=== PATIENT | female | born 1935 | race Caucasian/White ===

== ENCOUNTER 2018-08-29 13:55 | Inpatient (IN) | payer MEDICARE, BC ==
[2018-08-29 14:28] LABS: ABSOLUTE EOSINOPHILS # (AUTO) 0.3 10^3/uL (0.0-0.6); ABSOLUTE LYMPHOCYTES (AUTO) 1.9 10^3/uL (0.5-4.7); ABSOLUTE MONOCYTES (AUTO) 0.4 10^3/uL (0.1-1.4); ABSOLUTE NEUT (AUTO) 3.4 10^3/uL (1.7-8.2); BASOPHILS % (AUTO) 0.7 % (0-2); EOSINOPHILS % (AUTO) 4.9 % (0-6); HEMATOCRIT 37.5 % (36.0-47.0); HEMOGLOBIN 12.4 g/dL (12.0-15.5); LYMPHOCYTES % (AUTO) 30.9 % (13-45); MEAN CORPUSCULAR HEMOGLOBIN 30.2 pg (27.0-33.4); MEAN CORPUSCULAR HGB CONC 33.1 g/dL (32.0-36.0); MEAN CORPUSCULAR VOLUME 91 fl (80-97); PLATELET COUNT 126 10^3/uL (150-450); RED BLOOD COUNT 4.12 10^6/uL (3.72-5.28); RED CELL DISTRIBUTION WIDTH 12.2 % (11.5-14.0); SEGMENTED NEUTROPHILS % (AUTO) 56.5 % (42-78); TOTAL CELLS COUNTED % (AUTO) 100 %; WHITE BLOOD COUNT 6.1 10^3/uL (4.0-10.5)
[2018-08-29 14:33] LABS: PARTIAL THROMBOPLASTIN TIME 27.3 SEC (23.5-35.8)
[2018-08-29 14:38] LABS: PROTHROMBIN TIME 13.2 SEC (11.4-15.4)
[2018-08-29 15:00] LABS: ALANINE AMINOTRANSFERASE 27 U/L (9-52); ALBUMIN 3.4 g/dL (3.5-5.0); ALKALINE PHOSPHATASE 96 U/L (38-126); ANION GAP 5 (5-19); ASPARTATE AMINO TRANSFERASE 26 U/L (14-36); BILIRUBIN,DIRECT 0.3 mg/dL (0.0-0.4); BILIRUBIN,TOTAL 0.7 mg/dL (0.2-1.3); BLOOD UREA NITROGEN 21 mg/dL (7-20); CALCIUM 8.6 mg/dL (8.4-10.2); CARBON DIOXIDE 32 mmol/L (22-30); CHLORIDE 101 mmol/L (98-107); CREATINE KINASE 34 U/L (30-135); CREATINE KINASE MB 0.93 ng/mL (<4.55); GLUCOSE 103 mg/dL (75-110); TOTAL PROTEIN 6.4 g/dL (6.3-8.2); TROPONIN I < 0.012 ng/mL
--- NOTE | 2018-08-29 16:23 | RADIOLOGY REPORT (SQ) ---
EXAM DESCRIPTION: CT HEAD WITHOUT COMPLETED DATE/TIME: 08/29/2018 2:08 pm REASON FOR STUDY: new slurred speech, diff swallowing COMPARISON: None. TECHNIQUE: Axial images acquired through the brain without intravenous contrast. Images reviewed wi th bone, brain and subdural windows. Additional sagittal and coronal reconstructions were generated. Images stored on PACS. All CT scanners at this facility use dose modulation, iterative reconstruction, and/or weight based d osing when appropriate to reduce radiation dose to as low as reasonably achievable (ALARA). [facility]: Dose Right [facility]: CareDose [facility]: Dose Right [facility]: Teradose 4D [facility]: [employer] RADIATION DOSE: CT Rad equipment meets quality standard of care and radiation dose reduction techniq ues were employed. CTDIvol: 53.2 mGy. DLP: 1017 mGy-cm. mGy. LIMITATIONS: None. FINDINGS: VENTRICLES: Normal size and contour. CEREBRUM: No masses. No hemorrhage. No midline shift. No evidence for acute infarction. Normal gra y/white matter differentiation. No areas of low density in the white matter. CEREBELLUM: No masses. No hemorrhage. No alteration of density. No evidence for acute infarction. EXTRAAXIAL SPACES: No fluid collections. No masses. ORBITS AND GLOBE: No intra- or extraconal masses. Normal contour of globe without masses. CALVARIUM: No fracture. PARANASAL SINUSES: Right maxillary sinus fluid. SOFT TISSUES: No mass or hematoma. OTHER: No other significant finding. IMPRESSION: Right maxillary sinus fluid suggests acute infection. EVIDENCE OF ACUTE STROKE: NO. COMMENT: Quality ID # 436: Final reports with documentation of one or more dose reduction techniques (e.g., Automated exposure control, adjustment of the mA and/or kV according to patient size, use of iterative reconstruction technique) TECHNICAL DOCUMENTATION: JOB ID: [id number] [employer]- All Rights Reserved Reading location - IP/workstation name: [email or web address]
--- NOTE | 2018-08-29 16:27 | RADIOLOGY REPORT (SQ) ---
EXAM DESCRIPTION: CHEST SINGLE VIEW COMPLETED DATE/TIME: 08/29/2018 2:12 pm REASON FOR STUDY: new slurred speech, diff swallowing COMPARISON: None. NUMBER OF VIEWS: One view. TECHNIQUE: Single frontal radiographic image of the chest acquired. LIMITATIONS: Low lung volumes. FINDINGS: LUNGS AND PLEURA: No consolidation or effusions. No pneumothorax. MEDIASTINUM AND HILAR STRUCTURES: Apparent mediastinal widening most likely due to portable technique . HEART AND VASCULAR STRUCTURES: Mild cardiac enlargement. No failure. SUPPORT DEVICES: None. BONES: No acute findings. OTHER: No other significant finding. IMPRESSION: Mild cardiomegaly. No acute findings in the chest. TECHNICAL DOCUMENTATION: JOB ID: [id number] [employer]- All Rights Reserved Reading location - IP/workstation name: [email or web address]
--- NOTE | 2018-08-29 16:29 | RADIOLOGY REPORT (SQ) ---
EXAM DESCRIPTION: CTA HEAD; CTA NECK COMPLETED DATE/TIME: 08/29/2018 2:53 pm REASON FOR STUDY: look for LVO causing stroke symptoms COMPARISON: CT brain from earlier TECHNIQUE: Axial dynamic scanning technique with dynamic contrast enhancement through the extra-aircraft air conditioning mechanic nial carotid and vertebral arteries and cerebral arteries. Multiplanar reconstruction. 3-D MIPS an d Volume-rendered images acquired at the workstation and saved to PACS. Images are reviewed in brai n, subdural, soft tissue, bone, lung windows. All CT scanners at this facility use dose modulation, iterative reconstruction, and/or weight based d osing when appropriate to reduce radiation dose to as low as reasonably achievable (ALARA). [facility]: Dose Right [facility]: CareDose [facility]: Dose Right [facility]: Teradose 4D [facility]: [employer] CONTRAST TYPE AND DOSE: contrast/concentration: Isovue 350.00 mg/ml; Total Contrast Delivered: 70.0 ml; Total Saline Delivered: 56.0 ml RENAL FUNCTION: GFR > 60. LIMITATIONS: None. FINDINGS: Carotids: Tortuous common carotids without stenosis. Internal and external carotids bilaterally are patent. N o evidence of dissection. Bilateral patent vertebral arteries. [place]: Bilateral anterior cerebral arteries are patent. Posterior cerebral arteries look patent. Patent ri ght middle cerebral artery. The origin of the left MCA looks patent but vessels beyond this and thro ughout the MCA distribution are generally attenuated suggesting significant proximal stenosis/ occlus ion. No enhancing lesions. OTHER: 3-D reconstructions confirm findings. IMPRESSION: 1. Normal CTA bilateral carotids. 2. Attenuated vessels throughout the left cerebral hemisphere, MCA distribution. This suggests signi ficant proximal stenosis/occlusion. COMMENT: Quality ID #[id number]: Measurements of distal internal carotid diameter were used as the denomina tor for stenosis measurement. TECHNICAL DOCUMENTATION: JOB ID: [id number] Quality ID # [id number]: Final reports with documentation of one or more dose reduction techniques (e.g., Au tomated exposure control, adjustment of the mA and/or kV according to patient size, use of iterative reconstruction technique) 2010 [employer]- All Rights Reserved Reading location - IP/workstation name: [email or web address]
--- NOTE | 2018-08-29 16:29 | RADIOLOGY REPORT (SQ) ---
EXAM DESCRIPTION: CTA HEAD; CTA NECK COMPLETED DATE/TIME: 08/29/2018 2:53 pm REASON FOR STUDY: look for LVO causing stroke symptoms COMPARISON: CT brain from earlier TECHNIQUE: Axial dynamic scanning technique with dynamic contrast enhancement through the extra-scraper tender nial carotid and vertebral arteries and cerebral arteries. Multiplanar reconstruction. 3-D MIPS an d Volume-rendered images acquired at the workstation and saved to PACS. Images are reviewed in brai n, subdural, soft tissue, bone, lung windows. All CT scanners at this facility use dose modulation, iterative reconstruction, and/or weight based d osing when appropriate to reduce radiation dose to as low as reasonably achievable (ALARA). [facility]: Dose Right [facility]: CareDose [facility]: Dose Right [facility]: Teradose 4D [facility]: [employer] CONTRAST TYPE AND DOSE: contrast/concentration: Isovue 350.00 mg/ml; Total Contrast Delivered: 70.0 ml; Total Saline Delivered: 56.0 ml RENAL FUNCTION: GFR > 60. LIMITATIONS: None. FINDINGS: Carotids: Tortuous common carotids without stenosis. Internal and external carotids bilaterally are patent. N o evidence of dissection. Bilateral patent vertebral arteries. [place]: Bilateral anterior cerebral arteries are patent. Posterior cerebral arteries look patent. Patent ri ght middle cerebral artery. The origin of the left MCA looks patent but vessels beyond this and thro ughout the MCA distribution are generally attenuated suggesting significant proximal stenosis/ occlus ion. No enhancing lesions. OTHER: 3-D reconstructions confirm findings. IMPRESSION: 1. Normal CTA bilateral carotids. 2. Attenuated vessels throughout the left cerebral hemisphere, MCA distribution. This suggests signi ficant proximal stenosis/occlusion. COMMENT: Quality ID #[id number]: Measurements of distal internal carotid diameter were used as the denomina tor for stenosis measurement. TECHNICAL DOCUMENTATION: JOB ID: [id number] Quality ID # [id number]: Final reports with documentation of one or more dose reduction techniques (e.g., Au tomated exposure control, adjustment of the mA and/or kV according to patient size, use of iterative reconstruction technique) 2010 [employer] All Rights Reserved Reading location - IP/workstation name: [email or web address]
[2018-08-29] MEDS ORDERED: HYDRALAZINE HCL INJ/PF 20 MG/1 ML SDV IV ONE (17:37)
--- NOTE | 2018-08-29 17:48 | ER Document Report ---
Entered by RYAN ART SCRIBE 08/29/18 1718 Acting as scribe for:KATHY PRUITT DO ED General - General Chief Complaint: S/S of Possible Stroke Stated Complaint: DIFFICULTY SWALLOWING Time Seen by Provider: 08/29/18 14:00 Primary Care Provider: RYAN NICE MD [Primary Care Provider] - Follow up as needed Notes: Patient is an 82-year-old female arriving via EMS presenting to the emergency department with a possible stroke. [id number] at bedside states that the patient lives on her own, is independent in her ADLs and that her alarm went off, the loop sewer ended up going to the scene and found her on the floor. Family at bedside states that she has had intermittent episodes for the past month and a half of right-sided weakness, confusion and difficulty speaking. They will last no more than 15 minutes at a time and then recur. They have never lasted this long. Last known normal was yesterday evening of the . Patient has been experiencing difficulty swallowing, as well as weakness in her legs bilaterally. Family at bedside states that the patient has a bag of medications but has , and in the bag she has Coreg 3.125 that she was taking twice a day and is no longer taking. She also has a bag of medications she is currently taking. TRAVEL OUTSIDE OF THE [place] IN LAST 30 DAYS: No - Related Data Allergies/Adverse Reactions: Sulfa (Sulfonamide Antibiotics) Allergy (Intermediate, Verified 07/29/15 13:22) rash Past Medical History - General Information source: Patient, Relative - Social History Smoking Status: Unknown if Ever Smoked Cigarette use (# per day): No Chew tobacco use (# tins/day): No Frequency of alcohol use: None Drug Abuse: None Family History: Reviewed & Not Pertinent Patient has suicidal ideation: No Patient has homicidal ideation: No - Past Medical History Cardiac Medical History: Reports: Hx Hypertension - medicated Denies: Hx Heart Attack Pulmonary Medical History: Reports: Hx COPD GI Medical History: Reports: Hx Hiatal Hernia Musculoskeletal Medical History: Reports Hx Arthritis Past Surgical History: Reports: Hx Appendectomy, Hx Cholecystectomy, Hx Hysterectomy - Immunizations Hx Diphtheria, Pertussis, Tetanus Vaccination: Yes Review of Systems - Review of Systems Constitutional: No symptoms reported EENT: See HPI, Difficulty swallowing Cardiovascular: No symptoms reported Respiratory: No symptoms reported Gastrointestinal: No symptoms reported Genitourinary: No symptoms reported Female Genitourinary: No symptoms reported Musculoskeletal: See HPI Skin: No symptoms reported Hematologic/Lymphatic: No symptoms reported Neurological/Psychological: See HPI -: Yes All other systems reviewed and negative Physical Exam - Vital signs Vitals: Pulse Resp BP Pulse Ox 100 14 160/74 H 100 08/29/18 14:30 08/29/18 14:30 08/29/18 14:30 08/29/18 14:30 Interpretation: Hypertensive - Notes Notes: PHYSICAL EXAM GENERAL: Awake. Responds to greeting, that is all. Stares off to her left. HEAD: Normocephalic, atraumatic. EYES: Pupils equal, round, and reactive to light. Extraocular movements intact. ENT: Slight right-sided facial drooping. Oral mucosa moist, tongue midline. NECK: Full range of motion. Supple. Trachea midline. LUNGS: Clear to auscultation bilaterally, no wheezes, rales, or rhonchi. No respiratory distress. HEART: Regular rate and rhythm. No murmurs, gallops, or rubs. ABDOMEN: Soft, non-tender. Non-distended. Bowel sounds present in all 4 quadrants. No guarding, rigidity, or rebound. EXTREMITIES: Weakness in right arm and leg bilaterally, 4 out of 5 muscle str ength. No edema, radial and dorsalis pedis pulses 2/4 bilaterally. No cyanosis. NEUROLOGICAL: Awake, unable to answer orientation questions, cannot answer person, place or time, some dysarthria, difficulty with word finding. Right- sided facial droop. Unable to cooperate with full NIH.. Biceps and patellar DTRs 2+ bilaterally. PSYCH: Flat affect. SKIN: Warm, dry, normal turgor. Multiple actinic keratosis. Course - Re-evaluation Re-evalutation: 08/29/18 17:45 Patient made a stroke alert and immediately sent for a CT scan of the head though she is out of timeframe as her last known normal was last evening. Patient is not a candidate for TPA due to the fact that her last known normal was last evening. CT scan of the head verbal report was called to me by Dr. Nikos noe who reported that he may see an early evolving right MCA stroke and recommended getting a MRI in order to confirm. I was concerned for the possibility of a large vessel occlusion that was still within the 24-hour window to perform clot retrieval so I ordered a CTA of the head and neck instead. This did not show any large vessel occlusion. Official read of the CTA of the head and neck as well as of the CT scan of the head without contrast were both read by different radiologist who did not see any signs of a stroke. Patient's clinical presentation is still consistent with a stroke. After multiple rechecks the patient is not having any significant improvement, still has difficulty moving her right arm, still has right-sided facial droop, still has some slurred speech, disorientation and difficulty with word finding. Failed swallow screening. CBC unremarkable, coags normal, CMP shows slightly elevated BUN at 21 otherwise unremarkable, troponin negative, chest x-ray shows no acute process. Discussed case with Dr. Bernard the hospitalist who agreed to admit the patient to his service. Patient will likely go to the [facility]. She just recently became significantly hypertensive without any change in mental status, patient will have a 20 mg IV dose of hydralazine given and be rechecked. If this does not improve her blood pressure she will be started on labetalol and sent to the ICU instead. Dr. Bernard will order the MRI to further elucidate the exact area of her clinically apparent stroke. - Vital Signs Vital signs: Temp Pulse Resp BP Pulse Ox 100 14 160/74 H 100 08/29/18 14:30 08/29/18 14:30 08/29/18 14:30 08/29/18 14:30 - Laboratory Result Diagrams: 08/29/18 14:17 08/29/18 14:17 Laboratory results interpreted by me: 08/29/18 08/29/18 14:17 14:17 Plt Count 126 L Carbon Dioxide 32 H BUN 21 H Albumin 3.4 L - EKG Interpretation by Me Additional EKG results interpreted by me: 08/29/18 17:46 EKG shows sinus tachycardia at a rate of 99, normal axis, normal intervals, no ST segment elevations or depressions, 1 PVC, T wave inversions noted in lead aVF and lead III per my interpretation. Critical Care Note - Critical Care Note Total time excluding time spent on procedures (mins): 35 Discharge - Discharge Clinical Impression: Acute CVA (cerebrovascular accident), Hypertension Condition: Fair Disposition: ADMITTED INPATIENT Admitting Provider: Joana (Hospitalist) Unit Admitted: [facility] Referrals: RYAN NICE MD [Primary Care Provider] - Follow up as needed ED [employer]/Exc Criteria - Date/Time patient last known well: Date/Time: 08/28/2018 12:00 p.m. - Date/Time patient arrived in ED: _: 08/28/2018 14:00 - Inclusion Criteria: 1: Patient presented to ED within 3 hours of acute ischemic stroke symptom onset? -: No 2: Did baseline CT exclude intracranial hemorrhage and/or other risk factors? -: Yes 3: Is the age of the patient 18 years of age or greater? -: Yes : If any of the above questions are answered "NO" then stop, patient is not a candidate for Alteplase, : If all of the above questions are answered "YES" then continue with Exclusion Criteria. - Exclusion Criteria: 1: Is there evidence of intracranial hemorrhage on baseline CT? 2: Is there suspicion of subarachnoid hemorrhage (even if CT negative)? 3: Is there a history of serious head trauma, recent previous stroke or AK within 3 months? 4: Does the patient have a clinical presentation consistent with AK or post-AK pericarditis? 5: Is there history of intracranial hemorrhage? 6: On repeated measurement is Systolic BP greater than 185mmHg or Diastolic BP greater that 110 mmHg and is aggressive treatment needed to reduce blood pressure to these limits (e.g. constant infusion of an anti-hypertensive)? 7: Did the patient awake with stroke symptoms? 8: Has the patient had a lumbar puncture or an arterial puncture at a non- compressile site within 7 days? 9: With in the last 14 days did the patient have surgery or major trauma? 10: Is the patient or less than 2 weeks? 11: Was there any active bleeding or acute trauma? 12: Does the patient have intracranial neoplasm, arteriovenous malformation or aneurysm? 13: Does the patient have abnormal glucose (less than 50 or greater than 400mg/dl)? Record glucose in Comment. 14: Patient has rapidly improving symptoms at the time Alteplase is to be Administered. 15: Does the patient have any risks for bleeding, including but not limited to: a.: Current use of Coumadin with PT greater than 15 seconds or INR greater than 1.7. b.: Current use of Pradaxa (Dabigatran). c.: Heparin administereed within the past 48 hours and PTT elevated. d.: Platelet count less than 100,000/mm. e.: Major surgery or serious trauma within 14 days. f.: Gastrointestinal or gynecological urinary bleeding within 14 days. g.: Myocardial Infarction (AK) within 3 months. : If the answer to any of the above questions is "YES" then stop, the patient is not a candidate for Alteplase. : If the answer to all of the above questions is "NO" then the patient may be eligible for the Administration of Alteplase. : If the patient is noted to have seizure activity at onset of Stroke symptoms; Consult Neurologist for further evaluation. - The patient is: -: Included and is eligible to receive Alteplase. *Initiate bed placement at higher level of care* Reviewed risks & benefits of thrombolytic therapy: I have reviewed the risks and benefits of thrombolytic therapy with the patient and/or his/her family. -: Excluded and not eligible to receive Alteplase for the above exclusions. --: Yes -: Excluded and not eligible to receive Alteplase for other reasons (specify in comments): - Diagnosis of TIA: -: Patient presented with transient symptoms that are now resolved and no other neurologic findings are currently present. List symptoms in comments. -: Patient is NOT a candidate for tPA. -: ____(put name in comment) has been consulted for admission and continued evaluation of risk factor assessment. ED NIH Stroke Scale - NIH Stroke Scale When completed:: Protocol *: 1. NIH scale should be completed with appropriate accompanying assessment tools. *: 2. The NIH should reflect what the patient is capable of doing and should not be coached by the clinician. 1a. Level of Consciousness: 0=Alert;keenly responsive -: 1=Drowsy -: 2=Obtunded -: 3=Coma/unresponsive or reflex to noxious stimuli. 1a. Responses: 0 1b. Orientation Questions: a. What month is it? -: b. How old are you? -: 0=Answers both questions correctly. -: 1=Answers one question correctly or patient is intubated or has orotracheal trauma. -: 2=Answers neither question correctly. 1b. Responses: 2 1c. Response to commands: a. Open and close eyes? -: b. Medical Education Manager and release hand? -: Credit is given despite weakness. Demonstration of task is permitted. Subst itute command if hands cannot be used. -: 0=Performs both tasks correctly -: 1=Performs one task correctly -: 2=Performs neither task correctly 1c. Responses: 0 2. Gaze: Establish eye contact and instruct patient to "Follow my finger" -: 0=Normal -: 1=Partial gaze palsy. Gaze is abnormal in one or both eyes, but where forced deviation or total gaze paresis is not present. -: 2=Forced deviation or total gaze paresis. 2. Responses: 0 3. Visual Herrera: Sees fingers in all four quadrants. -: 0=No visual loss. -: 1=Partial hemianopsia. -: 2=Complete hemianopsia. -: 3=Bilateral hemianopsia (including Cortical blindness) 3. Responses: 0 4. Facial Movement: Instruct patient to: -: a. Show me your teeth -: b. Raise your eyebrows -: c. Close your eyes -: d. Smile -: 0=Normal symmetrical movement -: 1=Minor paralysis (flattened nasolabial fold, asymmetry on smiling). -: 2=Partial paralysis (total or near total paralysis of lower face). -: 3=Complete paralysis of upper and lower face 4. Responses: 2 5. Motor functions (left arm): Alternate sides and extend each arm with palms down (90 degrees if sitting or 45 degrees for supine). -: 0=No drift;limb holds for full 10 seconds. -: 1=Drift; limb holds but drifts down before full 10 seconds, but does not hit bed. -: 2=Some effort against gravity; limb cannot get to or maintain position. -: 3=No effort against gravity; limb falls. -: 4=No movement. -: UN=Amputation, joint fusion, explain in comments. 5. Responses (left arm): 0 5. Motor Functions (right arm): Alternate sides and extend each arm with palms down (90 degrees if sitting or 45 degrees for supine). -: 0=No drift;limb holds for full 10 seconds. -: 1=Drift; limb holds but drifts down before full 10 seconds, but does not hit bed. -: 2=Some effort against gravity; limb cannot get to or maintain position. -: 3=No effort against gravity; limb falls. -: 4=No movement. -: UN=Amputation, joint fusion, explain in comments. 5. Responses (right arm): 1 6. Motor Functions (left leg): With patient lying supine, alternate sides and extend each leg (30 degrees always while supine). -: 0=No drift, leg holds position for full 5 seconds -: 1=Drift; leg falls before full 5 seconds but does not hit bed. -: 2=Some effort against gravity, leg falls to bed but some effort against gravity. -: 3=No effort against gravity, leg falls to bed immediately. -: 4=No movement. -: UN=Amputation, joint fusion; explain in comments. 6. Responses (left leg): 0 6. Motor Functions (right leg): With patient lying supine, alternate sides and extend each leg (30 degrees always while supine). -: 0=No drift, leg holds position for full 5 seconds -: 1=Drift; leg falls before full 5 seconds but does not hit bed. -: 2=Some effort against gravity, leg falls to bed but some effort against gravity. -: 3=No effort against gravity, leg falls to bed immediately. -: 4=No movement. -: UN=Amputation, joint fusion; explain in comments. 6. Responses (right leg): 1 7. Limb Ataxia: With eyes open instruct patient to: -: a. "Touch your finger to your nose". -: b. "Touch your heel to your roblero" -: 0=Absent -: 1=Present in one limb. -: 2=Present in two limbs. -: UN=Amputation or joint fusion; explain in comments. 7. Responses: UN - can't follow commands 8. Sensory: Test sensation using pinprick or noxious stimuli. Test as many body parts as possible. -: 0=Normal;no sensory loss -: 1=Mile to moderate sensory loss (patient feels pin prick but is less sharp on affected side). -: 2=Severe or total sensory loss. 8. Responses: 0 9. Best Language: Instruct patient to: -: a. "Describe what you see in this picture." -: b. "Name the items in this picture." -: c. "Read these sentences." -: 0=No aphasia, normal -: 1=Mild to moderate aphasia. -: 2=Severe aphasia -: 3=Mute, global aphasia, no usable speech or auditory comprehension. 9. Responses: 2 10. Articulation, Dysarthia: Instruct patient to: -: "Read these words" or "Repeat these words" -: 0=Normal -: 1=Mild to moderate; patient may slur some words but can be understood without difficulty. -: 2=Severe; patients speech so slurred as to be unintelligible in the absence of dysphasia. -: UN=Intubated or other physical barrier, explain in comments. 10. Responses: 1 11. Extinction or inattention: 0=No abnormality -: 1= Visual, tactile, auditory, spatial, or personal inattention or extinction to bilateral simulation in one or the sensory modalities. -: 2=Profound ben-inattention or ben-inattention to more than one modality; d oes not recognize own hand. 11. Responses: 0 Total Score: 9 I personally performed the services described in the documentation, reviewed and edited the documentation which was dictated to the scribe in my presence, and it accurately records my words and actions.
[2018-08-29] MEDS ORDERED: ASPIRIN 300 MG SUPP, RECTAL PR ONE (17:55)
[2018-08-29] MEDS ORDERED: ACETAMINOPHEN 650 MG SUPP.RECT PR PRN (18:02)
[2018-08-29] MEDS ORDERED: ONDANSETRON HCL INJ/PF 4 MG/2 ML SDV IV PRN (18:02)
[2018-08-29] MEDS ORDERED: HYDRALAZINE HCL INJ/PF 20 MG/1 ML SDV IV PRN (18:15)
--- NOTE | 2018-08-29 18:32 | PDOC H&P ---
History of Present Illness Admission Date/PCP: 08/29/18 18:06 RYAN NICE MD Patient complains of: difficulty in communicating communicating History of Present Illness: CRISTOFER CARR is a 82 year old female history of osteoarthritis, gastric further reflux disease, depression this information got after reviewing her medications and the family members unable to give her past medical history on the patient is unable to communicate. Patient does have any previous admissions. As per the family the alarm went off at the patient's home and the patient is living alone the [facility] department call the patient's son to request to turn off the alarm which she did then he got a call again saying that his mom is unable to talk and she has a problem with ambulation they recommended to call the EMS EMS came and brought her to the emergency room for further evaluation. In the emergency room patient is unable to communicate but not in distress. Work-up shows no stroke in the CT head CT of the neck was negative for any stenosis. At the time of my examination patient is unable to talk at all and she has difficulty in following the commands. Also noticed to have weakness on the right upper arm. Decided to put her in IMCU for further management. Stroke parameters is going to be implemented. Past Medical History Cardiac Medical History: Reports: Hypertension - medicated Denies: Myocardial Infarction Pulmonary Medical History: Reports: Chronic Obstructive Pulmonary Disease (COPD) Denies: Asthma Neurological Medical History: Denies: Seizures GI Medical History: Reports: Hiatal Hernia Denies: Hepatitis Musculoskeltal Medical History: Reports: Arthritis Hematology: Denies: Anemia, Sickle Cell Disease Past Surgical History Past Surgical History: Reports: Appendectomy, Cholecystectomy, Hysterectomy Denies: Amputation, Mastectomy, Pacemaker Social History Smoking Status: Unknown if Ever Smoked Frequency of Alcohol Use: None Drugs: None Hx Prescription Drug Abuse: No - Advance Directive Resuscitation Status: Do Not Resuscitate Surrogate healthcare decision maker:: As per the son Georgi Black he wants her mom to be DNR/DNI. Family History Family History: Reviewed & Not Pertinent Parental Family History Reviewed: Yes - Family history of hypertension. Children Family History Reviewed: Yes Sibling(s) Family History Reviewed.: Yes Medication/Allergy Allergies/Adverse Reactions: Sulfa (Sulfonamide Antibiotics) Allergy (Intermediate, Verified 07/29/15 13:22) rash Review of Systems ROS unobtainable: Due to mental status Physical Exam Vital Signs: Temp Pulse Resp BP Pulse Ox 100 14 160/74 H 100 08/29/18 14:30 08/29/18 14:30 08/29/18 14:30 08/29/18 14:30 Intake & Output 08/28/18 08/29/18 08/30/18 06:59 06:59 06:59 Weight 93.1 kg General appearance: PRESENT: mild distress Head exam: PRESENT: atraumatic Eye exam: PRESENT: PERRLA Mouth exam: PRESENT: moist, tongue midline Teeth exam: PRESENT: edentulous Neck exam: ABSENT: carotid bruit, JVD, lymphadenopathy, thyromegaly Respiratory exam: PRESENT: decreased breath sounds Cardiovascular exam: PRESENT: RRR. ABSENT: diastolic murmur, rubs, systolic murmur GI/Abdominal exam: PRESENT: normal bowel sounds, soft. ABSENT: distended, guarding, mass, organolmegaly, rebound, tenderness Rectal exam: PRESENT: deferred Extremities exam: PRESENT: full ROM. ABSENT: calf tenderness, clubbing, pedal edema Neurological exam: PRESENT: altered, other - Examination right upper arm is weak there is no twister doffer at all but ceased spontaneously lifting her right arm. She is unable to talk at all. Spontaneously moving her lower extremities and left arm. Swallowing evaluation in the emergency room. Psychiatric exam: PRESENT: anxious Results Laboratory Results: 08/29/18 14:17 08/29/18 14:17 08/29/18 08/29/18 14:17 14:17 WBC 6.1 RBC 4.12 Hgb 12.4 Hct 37.5 MCV 91 MCH 30.2 MCHC 33.1 RDW 12.2 Plt Count 126 L Seg Neutrophils % 56.5 Lymphocytes % 30.9 Monocytes % 7.0 Eosinophils % 4.9 Basophils % 0.7 Absolute Neutrophils 3.4 Absolute Lymphocytes 1.9 Absolute Monocytes 0.4 Absolute Eosinophils 0.3 Absolute Basophils 0.0 Sodium 138.0 Potassium 4.0 Chloride 101 Carbon Dioxide 32 H Anion Gap 5 BUN 21 H Creatinine 0.84 Est GFR ( Amer) > 60 Est GFR (Non-Af Amer) > 60 Glucose 103 Calcium 8.6 Total Bilirubin 0.7 AST 26 ALT 27 Alkaline Phosphatase 96 Total Protein 6.4 Albumin 3.4 L 08/29/18 08/29/18 14:17 14:17 Creatine Kinase 34 CK-MB (CK-2) 0.93 Troponin I < 0.012 Impressions: Chest X-Ray 08/29/18 14:00 IMPRESSION: Mild cardiomegaly. No acute findings in the chest. Head CT 08/29/18 14:00 IMPRESSION: Right maxillary sinus fluid suggests acute infection. EVIDENCE OF ACUTE STROKE: NO. Head CTA 08/29/18 14:14 IMPRESSION: 1. Normal CTA bilateral carotids. 2. Attenuated vessels throughout the left cerebral hemisphere, MCA distribution. This suggests significant proximal stenosis/occlusion. Neck CTA 08/29/18 14:14 IMPRESSION: 1. Normal CTA bilateral carotids. 2. Attenuated vessels throughout the left cerebral hemisphere, MCA distribution. This suggests significant proximal stenosis/occlusion. Assessment and Plan - Diagnosis (1) Acute CVA (cerebrovascular accident) Is this a current diagnosis for this admission?: Yes Plan: 08/29/2018 based on the physical examination looks like patient has a TIA/stroke. Patient is going to be admitted to [facility] as inpatient. CODE STATUS is DNR/DNI. Stroke core measures are implemented patient is going to be n.p.o. until evaluated by speech therapist tomorrow. MRI of the brain was requested. She is going to be on GI prophylaxis with Protonix 40 mg IV twice daily and Lovenox 95 mg subcu every 12 hours. Started on aspirin atorvastatin and Plavix but at this time patient is going to be n.p.o. Lipid panel was requested for tomorrow mo rning. Patient's blood pressures are elevated in the emergency room latest blood pressure is 170/80 started on IV hydralazine 10 mg every 6 hours PRN for systolic blood pressure more than 160. Aspiration fall seizure precautions are requested Cabrera's catheter was requested. The of the neck was negative for a stenosis. T OT consult was requested nursing home social worker consult was requested for placement. (2) Hypertension Qualifiers: Hypertension type: essential hypertension Qualified Code(s): I10 - Essential (primary) hypertension Is this a current diagnosis for this admission?: Yes Plan: 08/29/2018-patient admitted with uncontrolled hypertension to start on IV hydralazine 10 mg every 6 hours as needed. No history of hypertension reported by the family members. (3) Obesity (BMI 30-39.9) Is this a current diagnosis for this admission?: No Plan: 08/29/2018-patient BMI is more than 30 once is stable we will go to recommend diet exercise weight loss lifestyle modifications. Dietary consult will be requested. - Time Time Spent with patient: 25-34 minutes Medications reviewed and adjusted accordingly: Yes Anticipated discharge: SNF
[2018-08-29] MEDS: ASPIRIN 325 MG TABLET PO SCH (18:37)
[2018-08-29 18:40] LABS: APPEARANCE,URINE SLIGHTLY-CLOUDY; BILIRUBIN,URINE NEGATIVE (NEGATIVE); COLOR,URINE YELLOW; GLUCOSE, URINE NEGATIVE (NEGATIVE); KETONES,URINE NEGATIVE (NEGATIVE); LEUKOCYTE ESTERASE,URINE TRACE (NEGATIVE); NITRITE,URINE POSITIVE (NEGATIVE); PROTEIN,URINE NEGATIVE (NEGATIVE); URINE SPECIFIC GRAVITY 1.019; UROBILINOGEN,URINE NEGATIVE mg/dL (<2.0)
[2018-08-29] MEDS ORDERED: ENOXAPARIN SODIUM INJ 40 MG/0.4 ML DISP.SYRIN SUBCUT SCH (19:00)
--- NOTE | 2018-08-29 23:17 | EKG REPORT ---
SEVERITY:- BORDERLINE ECG - SINUS TACHYCARDIA VENTRICULAR PREMATURE COMPLEX BORDERLINE T ABNORMALITIES, INFERIOR LEADS : Confirmed by: Naya Flood 29-Aug-2018 23:16:51
--- NOTE | 2018-08-29 23:47 | RADIOLOGY REPORT (SQ) ---
CLINICAL HISTORY: stroke COMPARISON: None. TECHNIQUE: MR BRAIN WITHOUT IV CONTRAST on 08/29/2018 12:00 AM CDT FINDINGS: There is a moderate area of restricted diffusion in the left parietal lobe predominantly with some involvement of the left temporal lobe, anterior basal ganglia on the left as well as the frontal lobe. There is no acute hemorrhage. There is diffuse cerebral atrophy. Paranasal sinuses are clear with the exception of the right maxillary sinus. Bilateral lens replacements were performed. Mastoid air cells are clear. IMPRESSION: Large area of acute infarction posterior left MCA territory.
[2018-08-29] MEDS: ENOXAPARIN SODIUM INJ 100 MG/1 ML DISP.SYRIN SUBCUT SCH (23:59)
[2018-08-30] MEDS: SIMVASTATIN 10 MG TABLET PO SCH ×2 (00:17→22:20)
[2018-08-30] MEDS: PANTOPRAZOLE SODIUM 40 MG VIAL IV SCH ×3 (00:18→22:21)
[2018-08-30 06:57] LABS: ABSOLUTE EOSINOPHILS # (AUTO) 0.2 10^3/uL (0.0-0.6); ABSOLUTE LYMPHOCYTES (AUTO) 2.2 10^3/uL (0.5-4.7); ABSOLUTE MONOCYTES (AUTO) 0.6 10^3/uL (0.1-1.4); ABSOLUTE NEUT (AUTO) 5.2 10^3/uL (1.7-8.2); BASOPHILS % (AUTO) 0.4 % (0-2); HEMOGLOBIN 12.5 g/dL (12.0-15.5); LYMPHOCYTES % (AUTO) 27.3 % (13-45); MEAN CORPUSCULAR HEMOGLOBIN 29.9 pg (27.0-33.4); MEAN CORPUSCULAR VOLUME 91 fl (80-97); MONOCYTES % (AUTO) 6.8 % (3-13); PLATELET COUNT 141 10^3/uL (150-450); RED CELL DISTRIBUTION WIDTH 12.4 % (11.5-14.0); SEGMENTED NEUTROPHILS % (AUTO) 63.5 % (42-78); TOTAL CELLS COUNTED % (AUTO) 100 %; WHITE BLOOD COUNT 8.1 10^3/uL (4.0-10.5)
[2018-08-30 07:16] LABS: ALANINE AMINOTRANSFERASE 20 U/L (9-52); ALBUMIN 3.6 g/dL (3.5-5.0); ALKALINE PHOSPHATASE 97 U/L (38-126); ANION GAP 6 (5-19); ASPARTATE AMINO TRANSFERASE 27 U/L (14-36); BILIRUBIN,DIRECT 0.4 mg/dL (0.0-0.4); BLOOD UREA NITROGEN 18 mg/dL (7-20); CALCIUM 9.3 mg/dL (8.4-10.2); CARBON DIOXIDE 35 mmol/L (22-30); CHLORIDE 98 mmol/L (98-107); CHOLESTEROL 199.47 mg/dL (0-200); CREATINE KINASE 91 U/L (30-135); GLUCOSE 113 mg/dL (75-110); POTASSIUM 4.4 mmol/L (3.6-5.0); TOTAL PROTEIN 6.7 g/dL (6.3-8.2); TRIGLYCERIDES 79 mg/dL (<150)
[2018-08-30 07:27] LABS: DIRECT LDL 126 mg/dL (<100)
[2018-08-30] MEDS ORDERED: LORAZEPAM INJ 2 MG/1 ML VIAL IV PRN (08:07)
--- NOTE | 2018-08-30 08:15 | PDOC PROGRESS REPORT ---
Subjective Progress Note for:: 08/30/18 Subjective:: 82 year old female history of osteoarthritis, gastric further reflux disease, depression this information got after reviewing her medications and the family members unable to give her past medical history on the patient is unable to communicate. Patient does have any previous admissions. As per the family the alarm went off at the patient's home and the patient is living alone the [facility]'s department call the patient's son to request to turn off the alarm which she did then he got a call again saying that his mom is unable to talk and she has a problem with ambulation they recommended to call the EMS EMS came and brought her to the emergency room for further evaluation. In the emergency room patient is unable to communicate but not in distress. Work-up shows no stroke in the CT head CT of the neck was negative for any stenosis. At the time of my examination patient is unable to talk at all and she has difficulty in following the commands. Also noticed to have weakness on the right upper arm. Decided to put her in IMCU for further management. Stroke parameters is going to be implemented. 08/30/2018 82-year-old female came to the emergency room with complaints of difficulty in speech and right-sided weakness MRI of the brain shows acute inf arct in the left MCA territory. CT of the neck was negative for carotid artery stenosis. Patient unable to speak but responding by nodding her head and shaking her head. Not in distress. No acute events in the last 24 hours. Discussed the plan of care with the family members they agreed with rehab placement. Reason For Visit: STROKE Physical Exam Vital Signs: Temp Pulse Resp BP Pulse Ox 98.4 F 114 H 24 H 165/74 H 90 L 08/30/18 07:12 08/30/18 07:12 08/30/18 07:12 08/30/18 07:12 08/30/18 07:12 Intake & Output 08/29/18 08/30/18 08/31/18 06:59 06:59 06:59 Weight 88.5 kg General appearance: PRESENT: no acute distress, obese Head exam: PRESENT: atraumatic Eye exam: PRESENT: PERRLA Mouth exam: PRESENT: moist, tongue midline Teeth exam: PRESENT: edentulous Neck exam: ABSENT: carotid bruit, JVD, lymphadenopathy, thyromegaly Respiratory exam: PRESENT: decreased breath sounds Cardiovascular exam: PRESENT: RRR. ABSENT: diastolic murmur, rubs, systolic murmur GI/Abdominal exam: PRESENT: normal bowel sounds, soft. ABSENT: distended, guar ding, mass, organolmegaly, rebound, tenderness Rectal exam: PRESENT: deferred Extremities exam: PRESENT: full ROM. ABSENT: calf tenderness, clubbing, pedal edema Neurological exam: PRESENT: alert, awake, other - MRI shows a left-sided stroke with weakness of the right upper arm on the right lower leg. And she has difficulty in speaking that is dysarthria. Psychiatric exam: PRESENT: anxious Results Laboratory Results: 08/30/18 06:35 08/30/18 06:35 08/29/18 08/29/18 08/29/18 14:17 14:17 17:45 WBC 6.1 RBC 4.12 Hgb 12.4 Hct 37.5 MCV 91 MCH 30.2 MCHC 33.1 RDW 12.2 Plt Count 126 L Seg Neutrophils % 56.5 Lymphocytes % 30.9 Monocytes % 7.0 Eosinophils % 4.9 Basophils % 0.7 Absolute Neutrophils 3.4 Absolute Lymphocytes 1.9 Absolute Monocytes 0.4 Absolute Eosinophils 0.3 Absolute Basophils 0.0 Sodium 138.0 Potassium 4.0 Chloride 101 Carbon Dioxide 32 H Anion Gap 5 BUN 21 H Creatinine 0.84 Est GFR ( Amer) > 60 Est GFR (Non-Af Amer) > 60 Glucose 103 Calcium 8.6 Total Bilirubin 0.7 AST 26 ALT 27 Alkaline Phosphatase 96 Total Protein 6.4 Albumin 3.4 L Triglycerides Cholesterol LDL Cholesterol Direct VLDL Cholesterol HDL Cholesterol TSH Urine Color YELLOW Urine Appearance SLIGHTLY-CLOUDY Urine pH 7.0 Ur Specific Bradley 1.019 Urine Protein NEGATIVE Urine Glucose (UA) NEGATIVE Urine Ketones NEGATIVE Urine Blood SMALL H Urine Nitrite POSITIVE H Ur Leukocyte Esterase TRACE H Urine WBC (Auto) 0 Urine RBC (Auto) 0 08/30/18 08/30/18 08/30/18 06:35 06:35 06:35 WBC 8.1 RBC 4.20 Hgb 12.5 Hct 38.0 MCV 91 MCH 29.9 MCHC 33.0 RDW 12.4 Plt Count 141 L Seg Neutrophils % 63.5 Lymphocytes % 27.3 Monocytes % 6.8 Eosinophils % 2.0 Basophils % 0.4 Absolute Neutrophils 5.2 Absolute Lymphocytes 2.2 Absolute Monocytes 0.6 Absolute Eosinophils 0.2 Absolute Basophils 0.0 Sodium 138.7 Potassium 4.4 Chloride 98 Carbon Dioxide 35 H Anion Gap 6 BUN 18 Creatinine 0.88 Est GFR ( Amer) > 60 Est GFR (Non-Af Amer) > 60 Glucose 113 H Calcium 9.3 Total Bilirubin 1.0 AST 27 ALT 20 Alkaline Phosphatase 97 Total Protein 6.7 Albumin 3.6 Triglycerides 79 Cholesterol 199.47 LDL Cholesterol Direct 126 H VLDL Cholesterol 16.0 HDL Cholesterol 51 TSH 2.45 Urine Color Urine Appearance Urine pH Ur Specific Bradley Urine Protein Urine Glucose (UA) Urine Ketones Urine Blood Urine Nitrite Ur Leukocyte Esterase Urine WBC (Auto) Urine RBC (Auto) 08/29/18 08/29/18 08/29/18 14:17 14:17 19:10 Creatine Kinase 34 37 CK-MB (CK-2) 0.93 Troponin I < 0.012 08/29/18 08/30/18 08/30/18 19:10 01:14 01:14 Creatine Kinase 54 CK-MB (CK-2) Troponin I < 0.012 0.339 08/30/18 08/30/18 06:35 06:35 Creatine Kinase 91 CK-MB (CK-2) Troponin I 0.460 Impressions: Head MRI 08/29/18 00:00 IMPRESSION: Large area of acute infarction posterior left MCA territory. Chest X-Ray 08/29/18 14:00 IMPRESSION: Mild cardiomegaly. No acute findings in the chest. Head CT 08/29/18 14:00 IMPRESSION: Right maxillary sinus fluid suggests acute infection. EVIDENCE OF ACUTE STROKE: NO. Head CTA 08/29/18 14:14 IMPRESSION: 1. Normal CTA bilateral carotids. 2. Attenuated vessels throughout the left cerebral hemisphere, MCA distribution. This suggests significant proximal stenosis/occlusion. Neck CTA 08/29/18 14:14 IMPRESSION: 1. Normal CTA bilateral carotids. 2. Attenuated vessels throughout the left cerebral hemisphere, MCA distribution. This suggests significant proximal stenosis/occlusion. Assessment and Plan - Diagnosis (1) Acute CVA (cerebrovascular accident) Is this a current diagnosis for this admission?: Yes Plan: 08/29/2018 based on the physical examination looks like patient has a TIA/stroke. Patient is going to be admitted to [facility] as inpatient. CODE STATUS is DNR/DNI. Stroke core measures are implemented patient is going to be n.p.o. until evaluated by speech therapist tomorrow. MRI of the brain was requested. She is going to be on GI prophylaxis with Protonix 40 mg IV twice daily and Lovenox 95 mg subcu every 12 hours. Started on aspirin atorvastatin and Plavix but at this time patient is going to be n.p.o. Lipid panel was requested for tomorrow jean-claude chan. Patient's blood pressures are elevated in the emergency room latest blood pressure is 170/80 started on IV hydralazine 10 mg every 6 hours PRN for systolic blood pressure more than 160. Aspiration fall seizure precautions are requested Cabrera's catheter was requested. The of the neck was negative for a stenosis. T OT consult was requested older adult social work specialist consult was requested for placement. 08/30/2018-MRI of the brain shows acute infarct involving the left MCA territory associated with dysarthria and right arm weakness and right lower leg weakness. No problems with bowel movements or urination. Speech consult was requested because patient failed swallowing evaluation yesterday. PT OT consult was requested older adult social work specialist consult was requested for placement. Presently on Lovenox treatment dose subcu every 12 hours. Started on aspirin, simvastatin and Plavix but patient is unable to take any medications by mouth at this time. Aspiration fall seizure precautions are in place. (2) Hypertension Qualifiers: Hypertension type: essential hypertension Qualified Code(s): I10 - Essential (primary) hypertension Is this a current diagnosis for this admission?: Yes Plan: 08/29/2018-patient admitted with uncontrolled hypertension to start on IV hydralazine 10 mg every 6 hours as needed. No history of hypertension reported by the family members. 08/30/2018-patient latest blood pressure is 165/84 with heart rate of 114 presently on IV hydralazine 10 mg IV every 6 as needed for blood pressure more than systolic blood pressure more than 160. (3) Obesity (BMI 30-39.9) Is this a current diagnosis for this admission?: No (4) Elevated troponin Is this a current diagnosis for this admission?: Yes Plan: 08/30/2018-patient came in with normal troponins the third troponin is 0.33 and fourth troponin is 0.46. Echocardiogram and cardiology consult will be requested. - Time Time Spent with patient: 25-34 minutes Medications reviewed and adjusted accordingly: Yes Anticipated discharge: SNF
[2018-08-30 10:00] LABS: CREATINE KINASE MB 2.51 ng/mL (<4.55); TROPONIN I 0.386 ng/mL
[2018-08-30] MEDS ORDERED: ENOXAPARIN SODIUM INJ 40 MG/0.4 ML DISP.SYRIN SUBCUT SCH (10:00)
[2018-08-30] MEDS: ENOXAPARIN SODIUM INJ 100 MG/1 ML DISP.SYRIN SUBCUT SCH ×2 (11:00→22:22)
[2018-08-30] MEDS: ASPIRIN 325 MG TABLET PO SCH (13:17)
[2018-08-30] MEDS: CLOPIDOGREL BISULFATE 75 MG TABLET PO SCH (13:18)
[2018-08-30 16:26] LABS: CREATINE KINASE MB 3.71 ng/mL (<4.55); TROPONIN I 0.263 ng/mL
[2018-08-30 21:21] LABS: CREATINE KINASE MB 4.5 ng/mL (<4.55)
[2018-08-30 21:37] LABS: TROPONIN I 0.476 ng/mL
--- NOTE | 2018-08-30 21:46 | PDOC CONSULTATION ---
Consultation-Blank Consultation: ECHO: There is normal left ventricular wall thickness. LV EF is > than 70% The left ventricular ejection fraction is within normal limits. Doppler measurements suggest pseudonormalized left ventricular relaxation, which is associated with grade II/IV or mild The left ventricle is normal in size. to moderate diastolic dysfunction The left ventricular wall motion is normal. No obvious thrombus, but not a good study for this.Probably no ASD ,VSD , or PFO seen. The right ventricle is normal in size and function. The right atrium is normal. The left atrial size is normal. There is no evidence of mitral valve prolapse. There is no vegetation seen on the mitral valve. There is no mitral valve stenosis. There is a trace to mild amount of mitral regurgitation The aortic valve is not well visualized secondary to technical limitations There is no aortic valve stenosis There is no LVOT obstruction. No aortic regurgitation is present. There is no tricuspid stenosis. There is a trace amount of tricuspid regurgitation There is mild pulmonary hypertension by echo RVSP is 35 to 40 mm of Hg , with RA mean of 5 to 10. There is no pulmonic valvular stenosis. There is no pulmonic valvular regurgitation. The aortic root is normal size. The inferior vena cava appeared normal and decreased > 50% with respiration (RAP 5-10 mmHg) There is no pericardial effusion.
--- NOTE | 2018-08-30 22:01 | XCELERA REPORT ---
[address] [address] Transthoracic Echocardiogram Report Name: CRISTOFER CARR Age: 82 yrs Gender: Female : 1935 Patient Status: Inpatient Patient Location: [address] [place], [place] [id number] Study Date: 08/30/2018 10:22 AM Height: 64 in Weight: 195 lb BSA: 1.9 m2 Procedure: A two-dimensional transthoracic echocardiogram with color flow and Doppler was performed. The study was technically difficult with many images being suboptimal in quality. The study was technically limited with all images being suboptimal in quality. Reason For Study: elevated troponon / CVA History: elevated troponon / CVA. Ordering Physician: TED JHAVERI Performed By: Imani Apple Interpretation Summary There is no obvious cardiac source of embolus noted on this transthoracic echocardiogram. Follow-up with a [facility] is suggested if cardiac source is still suspected. The left ventricle is normal in size. There is normal left ventricular wall thickness. LV EF is > than 70% The left ventricular ejection fraction is within normal limits. Doppler measurements suggest pseudonormalized left ventricular relaxation, which is associated with grade II/IV or mild to moderate diastolic dysfunction The left ventricular wall motion is normal. No obvious thrombus, but not a good study for this.Probably no ASD ,VSD , or PFO seen. The right ventricle is normal in size and function. The right atrium is normal. The left atrial size is normal. There is no evidence of mitral valve prolapse. There is no vegetation seen on the mitral valve. There is no mitral valve stenosis. There is a trace to mild amount of mitral regurgitation The aortic valve is not well visualized secondary to technical limitations There is no aortic valve stenosis There is no LVOT obstruction. No aortic regurgitation is present. There is no tricuspid stenosis. There is a trace amount of tricuspid regurgitation There is mild pulmonary hypertension by echo RVSP is 35 to 40 mm of Hg , with RA mean of 5 to 10. There is no pulmonic valvular stenosis. There is no pulmonic valvular regurgitation. The aortic root is normal size. The inferior vena cava appeared normal and decreased > 50% with respiration (RAP 5-10 mmHg) There is no pericardial effusion. There is no obvious cardiac source of embolus noted on this transthoracic echocardiogram. Follow-up with a [facility] is suggested if cardiac source is still suspected MMode/2D Measurements & Calculations RVDd: 2.5 cm LVIDd: 4.7 cm FS: 45.2 % LA dimension: 3.1 cm IVSd: 0.99 cm LVIDs: 2.6 cm EDV(Teich): 101.0 ml LVPWd: 0.93 cm ESV(Teich): 23.7 ml EF(Teich): 76.5 % Doppler Measurements & Calculations MV E max kayy: MV P1/2t max kayy: Ao V2 max: LV V1 max P.7 cm/sec 138.2 cm/sec 194.3 cm/sec 7.2 mmHg MV P1/2t: 45.2 msec Ao max PG: LV V1 max: MVA(P1/2t): 4.9 cm2 15.1 mmHg 133.8 cm/sec MV dec slope: 895.9 cm/sec2 MV dec time: 0.15 sec PA V2 max: TR max kayy: MV P1/2t-pr_phl: 148.1 cm/sec 271.5 cm/sec 45.2 msec PA max P.8 mmHgTR max P.5 mmHg Left Ventricle The left ventricle is normal in size. There is normal left ventricular wall thickness. LV EF is > than 70%. The left ventricular ejection fraction is within normal limits. Doppler measurements suggest pseudonormalized left ventricular relaxation, which is associated with grade II/IV or mild to moderate diastolic dysfunction. The left ventricular wall motion is normal. No obvious thrombus, but not a good study for this.Probably no ASD ,VSD , or PFO seen. Right Ventricle The right ventricle is normal in size and function. Atria The right atrium is normal. The left atrial size is normal. Mitral Valve There is no evidence of mitral valve prolapse. There is no vegetation seen on the mitral valve. There is no mitral valve stenosis. There is a trace to mild amount of mitral regurgitation. Aortic Valve The aortic valve is not well visualized secondary to technical limitations. There is no aortic valve stenosis. There is no LVOT obstruction. No aortic regurgitation is present. Tricuspid Valve There is no tricuspid stenosis. There is a trace amount of tricuspid regurgitation. There is mild pulmonary hypertension by echo. RVSP is 35 to 40 mm of Hg , with RA mean of 5 to 10. Pulmonic Valve There is no pulmonic valvular stenosis. There is no pulmonic valvular regurgitation. Great Vessels The aortic root is normal size. The inferior vena cava appeared normal and decreased > 50% with respiration (RAP 5-10 mmHg). Effusions There is no pericardial effusion. : TED JHAVERI > Cherelle Roldan
[2018-08-31 08:00] LABS: ABSOLUTE EOSINOPHILS # (AUTO) 0.1 10^3/uL (0.0-0.6); ABSOLUTE LYMPHOCYTES (AUTO) 2.3 10^3/uL (0.5-4.7); ABSOLUTE MONOCYTES (AUTO) 0.8 10^3/uL (0.1-1.4); ABSOLUTE NEUT (AUTO) 4.6 10^3/uL (1.7-8.2); BASOPHILS % (AUTO) 0.3 % (0-2); EOSINOPHILS % (AUTO) 1.3 % (0-6); HEMATOCRIT 35.1 % (36.0-47.0); HEMOGLOBIN 11.7 g/dL (12.0-15.5); LYMPHOCYTES % (AUTO) 29.7 % (13-45); MEAN CORPUSCULAR HEMOGLOBIN 30.2 pg (27.0-33.4); MEAN CORPUSCULAR HGB CONC 33.4 g/dL (32.0-36.0); MEAN CORPUSCULAR VOLUME 90 fl (80-97); MONOCYTES % (AUTO) 10.2 % (3-13); PLATELET COUNT 136 10^3/uL (150-450); RED BLOOD COUNT 3.89 10^6/uL (3.72-5.28); RED CELL DISTRIBUTION WIDTH 12.4 % (11.5-14.0); SEGMENTED NEUTROPHILS % (AUTO) 58.5 % (42-78); TOTAL CELLS COUNTED % (AUTO) 100 %; WHITE BLOOD COUNT 7.8 10^3/uL (4.0-10.5)
[2018-08-31 08:17] LABS: ALANINE AMINOTRANSFERASE 20 U/L (9-52); ALBUMIN 3.3 g/dL (3.5-5.0); ALKALINE PHOSPHATASE 89 U/L (38-126); ANION GAP 7 (5-19); ASPARTATE AMINO TRANSFERASE 36 U/L (14-36); BILIRUBIN,DIRECT 0.2 mg/dL (0.0-0.4); BILIRUBIN,TOTAL 1.3 mg/dL (0.2-1.3); BLOOD UREA NITROGEN 18 mg/dL (7-20); CALCIUM 8.9 mg/dL (8.4-10.2); CARBON DIOXIDE 33 mmol/L (22-30); CHLORIDE 97 mmol/L (98-107); GLUCOSE 122 mg/dL (75-110); POTASSIUM 4.2 mmol/L (3.6-5.0); TOTAL PROTEIN 6.5 g/dL (6.3-8.2)
--- NOTE | 2018-08-31 08:54 | PDOC PROGRESS REPORT ---
Subjective Progress Note for:: 08/31/18 Subjective:: 82 year old female history of osteoarthritis, gastric further reflux disease, depression this information got after reviewing her medications and the family members unable to give her past medical history on the patient is unable to communicate. Patient does have any previous admissions. As per the family the alarm went off at the patient's home and the patient is living alone the [facility]'s department call the patient's son to request to turn off the alarm which she did then he got a call again saying that his mom is unable to talk and she has a problem with ambulation they recommended to call the EMS EMS came and brought her to the emergency room for further evaluation. In the emergency room patient is unable to communicate but not in distress. Work-up shows no stroke in the CT head CT of the neck was negative for any stenosis. At the time of my examination patient is unable to talk at all and she has difficulty in following the commands. Also noticed to have weakness on the right upper arm. Decided to put her in IMCU for further management. Stroke parameters is going to be implemented. 08/30/2018 82-year-old female came to the emergency room with complaints of difficulty in speech and right-sided weakness MRI of the brain shows acute inf arct in the left MCA territory. CT of the neck was negative for carotid artery stenosis. Patient unable to speak but responding by nodding her head and shaking her head. Not in distress. No acute events in the last 24 hours. Discussed the plan of care with the family members they agreed with rehab placement. 08/31/2018 82-year-old female admitted with stroke with right-sided weakness and dysarthria found to have a stroke in the left MCA territory presently on pured diet. PT consult OT consult rehab consult was requested. No acute event the last 24 hours. Comfortable in the bed unable to communicate well. Reason For Visit: STROKE Physical Exam Vital Signs: Temp Pulse Resp BP Pulse Ox 99.4 F 117 H 20 140/56 H 94 08/31/18 07:18 08/31/18 07:18 08/31/18 07:18 08/31/18 07:18 08/31/18 07:18 Intake & Output 08/30/18 08/31/18 09/01/18 06:59 06:59 06:59 Intake Total 290 Balance 290 Weight 88.5 kg 90.6 kg General appearance: PRESENT: no acute distress, morbidly obese Head exam: PRESENT: atraumatic Eye exam: PRESENT: PERRLA Mouth exam: PRESENT: moist, tongue midline Teeth exam: PRESENT: poor dentation Neck exam: PRESENT: carotid bruit Respiratory exam: PRESENT: decreased breath sounds Cardiovascular exam: PRESENT: RRR. ABSENT: diastolic murmur, rubs, systolic murmur GI/Abdominal exam: PRESENT: normal bowel sounds, soft. ABSENT: distended, guarding, mass, organolmegaly, rebound, tenderness Rectal exam: PRESENT: deferred Gentrourinary exam: PRESENT: indwelling catheter Neurological exam: PRESENT: alert, other - Dysarthria associated with right upper arm and right lower leg weakness. Psychiatric exam: PRESENT: appropriate affect, normal mood. ABSENT: homicidal ideation, suicidal ideation Results Laboratory Results: 08/31/18 07:35 08/31/18 07:35 08/31/18 08/31/18 07:35 07:35 WBC 7.8 RBC 3.89 Hgb 11.7 L Hct 35.1 L MCV 90 MCH 30.2 MCHC 33.4 RDW 12.4 Plt Count 136 L Seg Neutrophils % 58.5 Lymphocytes % 29.7 Monocytes % 10.2 Eosinophils % 1.3 Basophils % 0.3 Absolute Neutrophils 4.6 Absolute Lymphocytes 2.3 Absolute Monocytes 0.8 Absolute Eosinophils 0.1 Absolute Basophils 0.0 Sodium 137.1 Potassium 4.2 Chloride 97 L Carbon Dioxide 33 H Anion Gap 7 BUN 18 Creatinine 0.91 Est GFR ( Amer) > 60 Est GFR (Non-Af Amer) 59 L Glucose 122 H Calcium 8.9 Magnesium 1.8 Total Bilirubin 1.3 AST 36 ALT 20 Alkaline Phosphatase 89 Total Protein 6.5 Albumin 3.3 L 08/29/18 08/29/18 08/29/18 14:17 14:17 19:10 Creatine Kinase 34 37 CK-MB (CK-2) 0.93 Troponin I < 0.012 08/29/18 08/30/18 08/30/18 19:10 01:14 01:14 Creatine Kinase 54 CK-MB (CK-2) Troponin I < 0.012 0.339 08/30/18 08/30/18 08/30/18 06:35 06:35 08:40 Creatine Kinase 91 117 CK-MB (CK-2) Troponin I 0.460 08/30/18 08/30/18 08/30/18 08:40 14:27 14:27 Creatine Kinase 160 H CK-MB (CK-2) 2.51 3.71 Troponin I 0.386 0.263 08/30/18 08/30/18 20:38 20:38 Creatine Kinase 205 H CK-MB (CK-2) 4.50 Troponin I 0.476 Impressions: Head MRI 08/29/18 00:00 IMPRESSION: Large area of acute infarction posterior left MCA territory. Chest X-Ray 08/29/18 14:00 IMPRESSION: Mild cardiomegaly. No acute findings in the chest. Head CT 08/29/18 14:00 IMPRESSION: Right maxillary sinus fluid suggests acute infection. EVIDENCE OF ACUTE STROKE: NO. Head CTA 08/29/18 14:14 IMPRESSION: 1. Normal CTA bilateral carotids. 2. Attenuated vessels throughout the left cerebral hemisphere, MCA distribution. This suggests significant proximal stenosis/occlusion. Neck CTA 08/29/18 14:14 IMPRESSION: 1. Normal CTA bilateral carotids. 2. Attenuated vessels throughout the left cerebral hemisphere, MCA distribution. This suggests significant proximal stenosis/occlusion. Assessment and Plan - Diagnosis (1) Acute CVA (cerebrovascular accident) Is this a current diagnosis for this admission?: Yes Plan: 08/29/2018 based on the physical examination looks like patient has a TIA/stroke. Patient is going to be admitted to [facility] as inpatient. CODE STATUS is DNR/DNI. Stroke core measures are implemented patient is going to be n.p.o. until evaluated by speech therapist tomorrow. MRI of the brain was requested. She is going to be on GI prophylaxis with Protonix 40 mg IV twice daily and Lovenox 95 mg subcu every 12 hours. Started on aspirin atorvastatin and Plavix but at this time patient is going to be n.p.o. Lipid panel was requested for tomorrow morning. Patient's blood pressures are elevated in the emergency room latest blood pressure is 170/80 started on IV hydralazine 10 mg every 6 hours PRN for systolic blood pressure more than 160. Aspiration fall seizure precautions are requested Cabrera's catheter was requested. The of the neck was negative for a stenosis. T OT consult was requested social media marketing specialist consult was requested for placement. 08/30/2018-MRI of the brain shows acute infarct involving the left MCA territory associated with dysarthria and right arm weakness and right lower leg weakness. No problems with bowel movements or urination. Speech consult was requested because patient failed swallowing evaluation yesterday. PT OT consult was reque rin social media marketing specialist consult was requested for placement. Presently on Lovenox treatment dose subcu every 12 hours. Started on aspirin, simvastatin and Plavix but patient is unable to take any medications by mouth at this time. Aspiration fall seizure precautions are in place. 08/31/2018-patient admitted with right-sided weakness MRI was positive for stroke patient is on pured diet bedbound OT PT rehab consult was requested stroke core measures are implemented nurse is able to get the medications in crushed form. Echocardiogram is normal (2) Hypertension Qualifiers: Hypertension type: essential hypertension Qualified Code(s): I10 - Essential (primary) hypertension Is this a current diagnosis for this admission?: Yes Plan: 08/29/2018-patient admitted with uncontrolled hypertension to start on IV hydralazine 10 mg every 6 hours as needed. No history of hypertension reported by the family members. 08/30/2018-patient latest blood pressure is 165/84 with heart rate of 114 presently on IV hydralazine 10 mg IV every 6 as needed for blood pressure more than systolic blood pressure more than 160. 08/31/2018-patient blood pressure today is 152/68. Pulse rate is 118. Presently on IV hydralazine 10 mg IV every 6 as needed. To start her on metoprolol 50 mg p.o. twice daily. (3) Obesity (BMI 30-39.9) Is this a current diagnosis for this admission?: No (4) Elevated troponin Is this a current diagnosis for this admission?: Yes Plan: 08/30/2018-patient came in with normal troponins the third troponin is 0.33 and fourth troponin is 0.46. Echocardiogram and cardiology consult will be requested. 08/31/2018-patient came in with normal troponins follow-up troponin shows trended up most likely secondary to neurogenic myocardial ischemia. Patient unable to comunicate, no signs of any distress. - Time Time Spent with patient: 25-34 minutes Medications reviewed and adjusted accordingly: Yes Anticipated discharge: SNF
[2018-08-31] MEDS: ENOXAPARIN SODIUM INJ 100 MG/1 ML DISP.SYRIN SUBCUT SCH ×2 (10:48→21:45)
[2018-08-31] MEDS: ASPIRIN 325 MG TABLET PO SCH (10:48)
[2018-08-31] MEDS: METOPROLOL TARTRATE 50 MG TABLET PO SCH ×2 (10:48→22:00)
[2018-08-31] MEDS: FAMOTIDINE 20 MG TABLET PO SCH ×2 (10:49→22:00)
[2018-08-31] MEDS: CLOPIDOGREL BISULFATE 75 MG TABLET PO SCH (10:49)
[2018-08-31] MEDS ORDERED: ONDANSETRON HCL INJ/PF 4 MG/2 ML SDV IV PRN (15:00)
[2018-08-31 17:24] LABS: APPEARANCE,URINE CLOUDY; BILIRUBIN,URINE NEGATIVE (NEGATIVE); COLOR,URINE AMBER; GLUCOSE, URINE NEGATIVE (NEGATIVE); KETONES,URINE NEGATIVE (NEGATIVE); LEUKOCYTE ESTERASE,URINE LARGE (NEGATIVE); NITRITE,URINE NEGATIVE (NEGATIVE); PROTEIN,URINE 30 mg/dL (NEGATIVE)
[2018-08-31] MEDS: SIMVASTATIN 10 MG TABLET PO SCH (22:00)
[2018-09-01 05:35] LABS: HEMATOCRIT 35.7 % (36.0-47.0); MEAN CORPUSCULAR HEMOGLOBIN 30.3 pg (27.0-33.4); MEAN CORPUSCULAR HGB CONC 33.5 g/dL (32.0-36.0); MEAN CORPUSCULAR VOLUME 90 fl (80-97); PLATELET COUNT 162 10^3/uL (150-450); RED BLOOD COUNT 3.95 10^6/uL (3.72-5.28); RED CELL DISTRIBUTION WIDTH 12.4 % (11.5-14.0); WHITE BLOOD COUNT 9.3 10^3/uL (4.0-10.5)
[2018-09-01 05:56] LABS: ALANINE AMINOTRANSFERASE 19 U/L (9-52); ALBUMIN 3.3 g/dL (3.5-5.0); ALKALINE PHOSPHATASE 85 U/L (38-126); ANION GAP 6 (5-19); ASPARTATE AMINO TRANSFERASE 32 U/L (14-36); BILIRUBIN,DIRECT 0.3 mg/dL (0.0-0.4); BILIRUBIN,TOTAL 1.3 mg/dL (0.2-1.3); BLOOD UREA NITROGEN 20 mg/dL (7-20); CARBON DIOXIDE 30 mmol/L (22-30); CHLORIDE 99 mmol/L (98-107); GLUCOSE 118 mg/dL (75-110); TOTAL PROTEIN 6.4 g/dL (6.3-8.2)
--- NOTE | 2018-09-01 08:17 | PDOC PROGRESS REPORT ---
Subjective Progress Note for:: 09/01/18 Subjective:: 82 year old female history of osteoarthritis, gastric further reflux disease, depression this information got after reviewing her medications and the family members unable to give her past medical history on the patient is unable to communicate. Patient does have any previous admissions. As per the family the alarm went off at the patient's home and the patient is living alone the [facility]'s department call the patient's son to request to turn off the alarm which she did then he got a call again saying that his mom is unable to talk and she has a problem with ambulation they recommended to call the EMS EMS came and brought her to the emergency room for further evaluation. In the emergency room patient is unable to communicate but not in distress. Work-up shows no stroke in the CT head CT of the neck was negative for any stenosis. At the time of my examination patient is unable to talk at all and she has difficulty in following the commands. Also noticed to have weakness on the right upper arm. Decided to put her in IMCU for further management. Stroke parameters is going to be implemented. 08/30/2018 82-year-old female came to the emergency room with complaints of difficulty in speech and right-sided weakness MRI of the brain shows acute inf arct in the left MCA territory. CT of the neck was negative for carotid artery stenosis. Patient unable to speak but responding by nodding her head and shaking her head. Not in distress. No acute events in the last 24 hours. Discussed the plan of care with the family members they agreed with rehab placement. 08/31/2018 82-year-old female admitted with stroke with right-sided weakness and dysarthria found to have a stroke in the left MCA territory presently on pured diet. PT consult OT consult rehab consult was requested. No acute event the last 24 hours. Comfortable in the bed unable to communicate well. 09/[id number]-oxzk-old female admitted with a stroke MRI confirmed that she had a left MCA territory stroke affecting the right side of the body and a speech. She is getting pured diet and medications in crushed form. Family requesting for placement in the [facility]. health service worker is working on the case. Probably she will go to the retirement either Tuesday or Tuesday. No acute events in the last 24 hours. Afebrile. Reason For Visit: STROKE Physical Exam Vital Signs: Temp Pulse Resp BP Pulse Ox 99.7 F 100 22 H 157/63 H 100 08/31/18 23:22 09/01/18 04:00 09/01/18 04:00 09/01/18 04:00 09/01/18 04:00 Intake & Output 08/31/18 09/01/18 09/02/18 06:59 06:59 06:59 Intake Total 290 460 Output Total 250 Balance 290 210 Weight 90.6 kg 89.3 kg General appearance: PRESENT: no acute distress, cooperative, obese Head exam: PRESENT: atraumatic Eye exam: PRESENT: PERRLA Ear exam: PRESENT: normal external ear exam Mouth exam: PRESENT: moist, tongue midline Teeth exam: PRESENT: edentulous Neck exam: ABSENT: carotid bruit, JVD, lymphadenopathy, thyromegaly Respiratory exam: PRESENT: decreased breath sounds Cardiovascular exam: PRESENT: RRR. ABSENT: diastolic murmur, rubs, systolic murmur GI/Abdominal exam: PRESENT: normal bowel sounds, soft. ABSENT: distended, guarding, mass, organolmegaly, rebound, tenderness Rectal exam: PRESENT: deferred Gentrourinary exam: PRESENT: indwelling catheter Extremities exam: PRESENT: other - Weakness of the right upper arm right lower leg. Neurological exam: PRESENT: alert, awake, other - Stroke affecting the right side of the body and also affecting the speech. Results Laboratory Results: 09/01/18 04:58 09/01/18 04:58 08/31/18 08/31/18 09/01/18 07:35 17:00 04:58 WBC 9.3 RBC 3.95 Hgb 12.0 Hct 35.7 L MCV 90 MCH 30.3 MCHC 33.5 RDW 12.4 Plt Count 162 Sodium 137.1 Potassium 4.2 Chloride 97 L Carbon Dioxide 33 H Anion Gap 7 BUN 18 Creatinine 0.91 Est GFR ( Amer) > 60 Est GFR (Non-Af Amer) 59 L Glucose 122 H Calcium 8.9 Magnesium 1.8 Total Bilirubin 1.3 AST 36 ALT 20 Alkaline Phosphatase 89 Total Protein 6.5 Albumin 3.3 L Urine Color VITA Urine Appearance CLOUDY Urine pH 8.0 Ur Specific [place] 1.020 Urine Protein 30 H Urine Glucose (UA) NEGATIVE Urine Ketones NEGATIVE Urine Blood NEGATIVE Urine Nitrite NEGATIVE Ur Leukocyte Esterase LARGE H Urine WBC (Auto) 108 Urine RBC (Auto) 6 09/01/18 04:58 WBC RBC Hgb Hct MCV MCH MCHC RDW Plt Count Sodium 135.1 L Potassium 4.0 Chloride 99 Carbon Dioxide 30 Anion Gap 6 BUN 20 Creatinine 0.90 Est GFR ( Amer) > 60 Est GFR (Non-Af Amer) > 60 Glucose 118 H Calcium 9.0 Magnesium 1.8 Total Bilirubin 1.3 AST 32 ALT 19 Alkaline Phosphatase 85 Total Protein 6.4 Albumin 3.3 L Urine Color Urine Appearance Urine pH Ur Specific [place] Urine Protein Urine Glucose (UA) Urine Ketones Urine Blood Urine Nitrite Ur Leukocyte Esterase Urine WBC (Auto) Urine RBC (Auto) 08/29/18 08/29/18 08/29/18 14:17 14:17 19:10 Creatine Kinase 34 37 CK-MB (CK-2) 0.93 Troponin I < 0.012 08/29/18 08/30/18 08/30/18 19:10 01:14 01:14 Creatine Kinase 54 CK-MB (CK-2) Troponin I < 0.012 0.339 08/30/18 08/30/18 08/30/18 06:35 06:35 08:40 Creatine Kinase 91 117 CK-MB (CK-2) Troponin I 0.460 08/30/18 08/30/18 08/30/18 08:40 14:27 14:27 Creatine Kinase 160 H CK-MB (CK-2) 2.51 3.71 Troponin I 0.386 0.263 08/30/18 08/30/18 20:38 20:38 Creatine Kinase 205 H CK-MB (CK-2) 4.50 Troponin I 0.476 Impressions: Head MRI 08/29/18 00:00 IMPRESSION: Large area of acute infarction posterior left MCA territory. Chest X-Ray 08/29/18 14:00 IMPRESSION: Mild cardiomegaly. No acute findings in the chest. Head CT 08/29/18 14:00 IMPRESSION: Right maxillary sinus fluid suggests acute infection. EVIDENCE OF ACUTE STROKE: NO. Head CTA 08/29/18 14:14 IMPRESSION: 1. Normal CTA bilateral carotids. 2. Attenuated vessels throughout the left cerebral hemisphere, MCA distribution. This suggests significant proximal stenosis/occlusion. Neck CTA 08/29/18 14:14 IMPRESSION: 1. Normal CTA bilateral carotids. 2. Attenuated vessels throughout the left cerebral hemisphere, MCA distribution. This suggests significant proximal stenosis/occlusion. Assessment and Plan - Diagnosis (1) Acute CVA (cerebrovascular accident) Is this a current diagnosis for this admission?: Yes Plan: 08/29/2018 based on the physical examination looks like patient has a TIA/stroke. Patient is going to be admitted to [facility] as inpatient. CODE STATUS is DNR/DNI. Stroke core measures are implemented patient is going to be n.p.o. until evaluated by speech therapist tomorrow. MRI of the brain was requested. She is going to be on GI prophylaxis with Protonix 40 mg IV twice daily and Lovenox 95 mg subcu every 12 hours. Started on aspirin atorvastatin and Plavix but at this time patient is going to be n.p.o. Lipid panel was requested for tomorrow morning. Patient's blood pressures are elevated in the emergency room latest blood pressure is 170/80 started on IV hydralazine 10 mg every 6 hours PRN for systolic blood pressure more than 160. Aspiration fall seizure precautions are requested Cabrera's catheter was requested. The of the neck was negative for a stenosis. T OT consult was requested social director consult was requested for placement. 08/30/2018-MRI of the brain shows acute infarct involving the left MCA territory associated with dysarthria and right arm weakness and right lower leg weakness. No problems with bowel movements or urination. Speech consult was requested because patient failed swallowing evaluation yesterday. PT OT consult was requested social director consult was requested for placement. Presently on Lovenox treatment dose subcu every 12 hours. Started on aspirin, simvastatin and Plavix but patient is unable to take any medications by mouth at this time. Aspiration fall seizure precautions are in place. 08/31/2018-patient admitted with right-sided weakness MRI was positive for stroke patient is on pured diet bedbound OT PT rehab consult was requested stroke core measures are implemented nurse is able to get the medications in crushed form. Echocardiogram is normal 09/01/2018-patient admitted with a CVA involving the right MCA territory affecting the right upper arm right lower leg and also the speech and swallowing. PT OT on board social director working on the case for her to go to long-term care facility in [facility]. No acute events. Stroke core measures implemented during the hospital stay. (2) Hypertension Qualifiers: Hypertension type: essential hypertension Qualified Code(s): I10 - Essential (primary) hypertension Is this a current diagnosis for this admission?: Yes Plan: 08/29/2018-patient admitted with uncontrolled hypertension to start on IV hydralazine 10 mg every 6 hours as needed. No history of hypertension reported by the family members. 08/30/2018-patient latest blood pressure is 165/84 with heart rate of 114 presently on IV hydralazine 10 mg IV every 6 as needed for blood pressure more than systolic blood pressure more than 160. 08/31/2018-patient blood pressure today is 152/68. Pulse rate is 118. Presently on IV hydralazine 10 mg IV every 6 as needed. To start her on metoprolol 50 mg p.o. twice daily. 09/01/2018-patient came in with hypertensive emergency with systolic blood pressure of 211/diastolic blood pressure of 145 and repeat blood pressure was 213/167 followed by 189/78 these are the recordings in the emergency room after starting IV hydralazine 10 mg every 4 PRN for systolic blood pressure more than 160 blood pressure is improved today's blood pressure is 157/63. Presently on metoprolol 50 mg p.o. every 12 hours started on lisinopril 10 mg daily from today. Hypertensive emergency resolving. (3) Obesity (BMI 30-39.9) Is this a current diagnosis for this admission?: No (4) Elevated troponin Is this a current diagnosis for this admission?: Yes - Time Time Spent with patient: 25-34 minutes Medications reviewed and adjusted accordingly: Yes Anticipated discharge: SNF
[2018-09-01] MEDS: ASPIRIN 325 MG TABLET PO SCH (09:52)
[2018-09-01] MEDS: METOPROLOL TARTRATE 50 MG TABLET PO SCH ×2 (09:53→21:18)
[2018-09-01] MEDS: ENOXAPARIN SODIUM INJ 100 MG/1 ML DISP.SYRIN SUBCUT SCH ×2 (09:54→21:17)
[2018-09-01] MEDS: CLOPIDOGREL BISULFATE 75 MG TABLET PO SCH (09:55)
[2018-09-01] MEDS: FAMOTIDINE 20 MG TABLET PO SCH ×2 (09:56→21:18)
[2018-09-01] MEDS: LISINOPRIL 10 MG TABLET PO SCH (09:56)
[2018-09-01] MEDS: SIMVASTATIN 10 MG TABLET PO SCH (21:18)
--- NOTE | 2018-09-02 08:32 | PDOC PROGRESS REPORT ---
Subjective Progress Note for:: 09/02/18 Subjective:: 82 year old female history of osteoarthritis, gastric further reflux disease, depression this information got after reviewing her medications and the family members unable to give her past medical history on the patient is unable to communicate. Patient does have any previous admissions. As per the family the alarm went off at the patient's home and the patient is living alone the [facility]'s department call the patient's son to request to turn off the alarm which she did then he got a call again saying that his mom is unable to talk and she has a problem with ambulation they recommended to call the EMS EMS came and brought her to the emergency room for further evaluation. In the emergency room patient is unable to communicate but not in distress. Work-up shows no stroke in the CT head CT of the neck was negative for any stenosis. At the time of my examination patient is unable to talk at all and she has difficulty in following the commands. Also noticed to have weakness on the right upper arm. Decided to put her in IMCU for further management. Stroke parameters is going to be implemented. 08/30/2018 82-year-old female came to the emergency room with complaints of difficulty in speech and right-sided weakness MRI of the brain shows acute inf arct in the left MCA territory. CT of the neck was negative for carotid artery stenosis. Patient unable to speak but responding by nodding her head and shaking her head. Not in distress. No acute events in the last 24 hours. Discussed the plan of care with the family members they agreed with rehab placement. 08/31/2018 82-year-old female admitted with stroke with right-sided weakness and dysarthria found to have a stroke in the left MCA territory presently on pured diet. PT consult OT consult rehab consult was requested. No acute event the last 24 hours. Comfortable in the bed unable to communicate well. 09/[id number]-axhv-old female admitted with a stroke MRI confirmed that she had a left MCA territory stroke affecting the right side of the body and a speech. She is getting pured diet and medications in crushed form. Family requesting for placement in the [facility]. bridge gang worker is working on the case. Probably she will go to the senior care either Tuesday or Tuesday. No acute events in the last 24 hours. Afebrile. 09/02/[id number]-rvsg-old female admitted with stroke confirmed by MRI. Patient has little bit of difficulty in taking pudding. No acute change in the last 24 hours. Afebrile. Waiting for placement. Reason For Visit: STROKE Physical Exam Vital Signs: Temp Pulse Resp BP Pulse Ox 98.4 F 85 26 H 148/78 H 100 09/02/18 07:13 09/02/18 07:13 09/02/18 07:13 09/02/18 07:13 09/02/18 07:13 Intake & Output 09/01/18 09/02/18 09/03/18 06:59 06:59 06:59 Intake Total 460 473 Output Total 250 Balance 210 473 Weight 89.3 kg 89.6 kg General appearance: PRESENT: no acute distress, obese Head exam: PRESENT: atraumatic Eye exam: PRESENT: PERRLA Mouth exam: PRESENT: moist, tongue midline Teeth exam: PRESENT: poor dentation Neck exam: PRESENT: carotid bruit Respiratory exam: PRESENT: decreased breath sounds Cardiovascular exam: PRESENT: RRR. ABSENT: diastolic murmur, rubs, systolic murmur GI/Abdominal exam: PRESENT: normal bowel sounds, soft. ABSENT: distended, guarding, mass, organolmegaly, rebound, tenderness Rectal exam: PRESENT: deferred Extremities exam: PRESENT: full ROM. ABSENT: calf tenderness, clubbing, pedal edema Neurological exam: PRESENT: alert, awake, oriented to person, oriented to place, oriented to time, oriented to situation, CN II-XII grossly intact. ABSENT: motor sensory deficit Psychiatric exam: PRESENT: appropriate affect, normal mood. ABSENT: homicidal ideation, suicidal ideation Results Laboratory Results: 09/01/18 04:58 09/01/18 04:58 08/29/18 08/29/18 08/29/18 14:17 14:17 19:10 Creatine Kinase 34 37 CK-MB (CK-2) 0.93 Troponin I < 0.012 08/29/18 08/30/18 08/30/18 19:10 01:14 01:14 Creatine Kinase 54 CK-MB (CK-2) Troponin I < 0.012 0.339 08/30/18 08/30/18 08/30/18 06:35 06:35 08:40 Creatine Kinase 91 117 CK-MB (CK-2) Troponin I 0.460 08/30/18 08/30/18 08/30/18 08:40 14:27 14:27 Creatine Kinase 160 H CK-MB (CK-2) 2.51 3.71 Troponin I 0.386 0.263 08/30/18 08/30/18 20:38 20:38 Creatine Kinase 205 H CK-MB (CK-2) 4.50 Troponin I 0.476 Impressions: Head MRI 08/29/18 00:00 IMPRESSION: Large area of acute infarction posterior left MCA territory. Chest X-Ray 08/29/18 14:00 IMPRESSION: Mild cardiomegaly. No acute findings in the chest. Head CT 08/29/18 14:00 IMPRESSION: Right maxillary sinus fluid suggests acute infection. EVIDENCE OF ACUTE STROKE: NO. Head CTA 08/29/18 14:14 IMPRESSION: 1. Normal CTA bilateral carotids. 2. Attenuated vessels throughout the left cerebral hemisphere, MCA distribution. This suggests significant proximal stenosis/occlusion. Neck CTA 08/29/18 14:14 IMPRESSION: 1. Normal CTA bilateral carotids. 2. Attenuated vessels throughout the left cerebral hemisphere, MCA distribution. This suggests significant proximal stenosis/occlusion. Assessment and Plan - Diagnosis (1) Acute CVA (cerebrovascular accident) Is this a current diagnosis for this admission?: Yes Plan: 08/29/2018 based on the physical examination looks like patient has a TIA/stroke. Patient is going to be admitted to [facility] as inpatient. CODE STATUS is DNR/DNI. Stroke core measures are implemented patient is going to be n.p.o. until evaluated by speech therapist tomorrow. MRI of the brain was requested. She is going to be on GI prophylaxis with Protonix 40 mg IV twice daily and Lovenox 95 mg subcu every 12 hours. Started on aspirin atorvastatin and Plavix but at this time patient is going to be n.p.o. Lipid panel was requested for tomorrow morning. Patient's blood pressures are elevated in the emergency room latest blood pressure is 170/80 started on IV hydralazine 10 mg every 6 hours PRN for systolic blood pressure more than 160. Aspiration fall seizure precautions are requested Cabrera's catheter was requested. The of the neck was negative for a stenosis. T OT consult was requested social security specialist consult was requested for placement. 08/30/2018-MRI of the brain shows acute infarct involving the left MCA territory associated with dysarthria and right arm weakness and right lower leg weakness. No problems with bowel movements or urination. Speech consult was requested because patient failed swallowing evaluation yesterday. PT OT consult was requested social security specialist consult was requested for placement. Presently on Lovenox treatment dose subcu every 12 hours. Started on aspirin, simvastatin a nd Plavix but patient is unable to take any medications by mouth at this time. Aspiration fall seizure precautions are in place. 08/31/2018-patient admitted with right-sided weakness MRI was positive for stroke patient is on pured diet bedbound OT PT rehab consult was requested stroke core measures are implemented nurse is able to get the medications in crushed form. Echocardiogram is normal 09/01/2018-patient admitted with a CVA involving the right MCA territory affecting the right upper arm right lower leg and also the speech and swallowing. PT OT on board social security specialist working on the case for her to go to long-term care facility in [facility]. No acute events. Stroke core measu res implemented during the hospital stay. 09/02/1849-36-urkh-old female admitted for CVA with right-sided ben-parous is. Waiting for placement. Patient has also difficulty in swallowing she is on pur e diet. No acute events the last 24 hours. Waiting for placement. stroke Core measures are implemented. We are going to discontinue meds from today. (2) Hypertension Qualifiers: Hypertension type: essential hypertension Qualified Code(s): I10 - Essential (primary) hypertension Is this a current diagnosis for this admission?: Yes Plan: 08/29/2018-patient admitted with uncontrolled hypertension to start on IV hydralazine 10 mg every 6 hours as needed. No history of hypertension reported by the family members. 08/30/2018-patient latest blood pressure is 165/84 with heart rate of 114 presently on IV hydralazine 10 mg IV every 6 as needed for blood pressure more t andres systolic blood pressure more than 160. 08/31/2018-patient blood pressure today is 152/68. Pulse rate is 118. Presently on IV hydralazine 10 mg IV every 6 as needed. To start her on metoprolol 50 mg p.o. twice daily. 09/01/2018-patient came in with hypertensive emergency with systolic blood pressure of 211/diastolic blood pressure of 145 and repeat blood pressure was 213/167 followed by 189/78 these are the recordings in the emergency room after starting IV hydralazine 10 mg every 4 PRN for systolic blood pressure more than 160 blood pressure is improved today's blood pressure is 157/63. Presently on metoprolol 50 mg p.o. every 12 hours started on lisinopril 10 mg daily from today. Hypertensive emergency resolving. 09/02/2018-patient admitted with hypertensive emergency which was resolved blood pressure today is 121/66 plan is to continue the present management. (3) Obesity (BMI 30-39.9) Is this a current diagnosis for this admission?: No (4) Elevated troponin Is this a current diagnosis for this admission?: Yes - Time Time Spent with patient: 25-34 minutes Medications reviewed and adjusted accordingly: Yes Anticipated discharge: SNF
[2018-09-02] MEDS: ASPIRIN 325 MG TABLET PO SCH (09:47)
[2018-09-02] MEDS: METOPROLOL TARTRATE 50 MG TABLET PO SCH ×2 (09:47→22:13)
[2018-09-02] MEDS: ENOXAPARIN SODIUM INJ 100 MG/1 ML DISP.SYRIN SUBCUT SCH ×2 (09:47→22:12)
[2018-09-02] MEDS: LISINOPRIL 10 MG TABLET PO SCH (09:47)
[2018-09-02] MEDS: FAMOTIDINE 20 MG TABLET PO SCH ×2 (09:47→22:13)
[2018-09-02] MEDS: CLOPIDOGREL BISULFATE 75 MG TABLET PO SCH (09:47)
[2018-09-02] MEDS: SIMVASTATIN 10 MG TABLET PO SCH (22:13)
--- NOTE | 2018-09-03 08:36 | PDOC PROGRESS REPORT ---
Subjective Progress Note for:: 09/03/18 Subjective:: 82 year old female history of osteoarthritis, gastric further reflux disease, depression this information got after reviewing her medications and the family members unable to give her past medical history on the patient is unable to communicate. Patient does have any previous admissions. As per the family the alarm went off at the patient's home and the patient is living alone the [facility] department call the patient's son to request to turn off the alarm which she did then he got a call again saying that his mom is unable to talk and she has a problem with ambulation they recommended to call the EMS EMS came and brought her to the emergency room for further evaluation. In the emergency room patient is unable to communicate but not in distress. Work-up shows no stroke in the CT head CT of the neck was negative for any stenosis. At the time of my examination patient is unable to talk at all and she has difficulty in following the commands. Also noticed to have weakness on the right upper arm. Decided to put her in IMCU for further management. Stroke parameters is going to be implemented. 08/30/2018 82-year-old female came to the emergency room with complaints of difficulty in speech and right-sided weakness MRI of the brain shows acute inf arct in the left MCA territory. CT of the neck was negative for carotid artery stenosis. Patient unable to speak but responding by nodding her head and shaking her head. Not in distress. No acute events in the last 24 hours. Discussed the plan of care with the family members they agreed with rehab placement. 08/31/2018 82-year-old female admitted with stroke with right-sided weakness and dysarthria found to have a stroke in the left MCA territory presently on pured diet. PT consult OT consult rehab consult was requested. No acute event the last 24 hours. Comfortable in the bed unable to communicate well. 09/01/[id number]-uvbm-old female admitted with a stroke MRI confirmed that she had a left MCA territory stroke affecting the right side of the body and a speech. She is getting pured diet and medications in crushed form. Family requesting for placement in the [facility]. pick and shovel worker is working on the case. Probably she will go to the jail either Tuesday or Tuesday. No acute events in the last 24 hours. Afebrile. 09/02/[id number]-tqap-old female admitted with stroke confirmed by MRI. Patient has little bit of difficulty in taking pudding. No acute change in the last 24 hours. Afebrile. Waiting for placement. 09/03/[id number]-tgbn-old female admitted with a stroke confirmed with MRI she does not have any pulmonary tolerate the right arm , barely able to move her right foot. Patient looks like has a hemiplegia with right-sided hemiplegia. Physical therapy is working with the patient ,turnaround planner is working for placement in [facility]. Reason For Visit: STROKE Physical Exam Vital Signs: Temp Pulse Resp BP Pulse Ox 99.0 F 83 28 H 139/51 H 100 09/03/18 07:12 09/03/18 07:12 09/03/18 07:12 09/03/18 07:12 09/03/18 07:12 Intake & Output 09/02/18 09/03/18 09/04/18 06:59 06:59 06:59 Intake Total 473 674 Output Total 50 Balance 473 624 Weight 89.6 kg 88.1 kg General appearance: PRESENT: no acute distress Head exam: PRESENT: atraumatic Eye exam: PRESENT: PERRLA Mouth exam: PRESENT: moist, tongue midline Teeth exam: PRESENT: poor dentation Neck exam: ABSENT: carotid bruit, JVD, lymphadenopathy, thyromegaly Respiratory exam: PRESENT: decreased breath sounds Cardiovascular exam: PRESENT: RRR. ABSENT: diastolic murmur, rubs, systolic murmur GI/Abdominal exam: PRESENT: normal bowel sounds, soft. ABSENT: distended, guarding, mass, organolmegaly, rebound, tenderness Rectal exam: PRESENT: deferred Extremities exam: PRESENT: full ROM. ABSENT: calf tenderness, clubbing, pedal edema Neurological exam: PRESENT: other - pt has a right hemiplegia Psychiatric exam: PRESENT: anxious Results Laboratory Results: 09/01/18 04:58 09/01/18 04:58 08/29/18 08/29/18 08/29/18 14:17 14:17 19:10 Creatine Kinase 34 37 CK-MB (CK-2) 0.93 Troponin I < 0.012 08/29/18 08/30/18 08/30/18 19:10 01:14 01:14 Creatine Kinase 54 CK-MB (CK-2) Troponin I < 0.012 0.339 08/30/18 08/30/18 08/30/18 06:35 06:35 08:40 Creatine Kinase 91 117 CK-MB (CK-2) Troponin I 0.460 08/30/18 08/30/18 08/30/18 08:40 14:27 14:27 Creatine Kinase 160 H CK-MB (CK-2) 2.51 3.71 Troponin I 0.386 0.263 08/30/18 08/30/18 20:38 20:38 Creatine Kinase 205 H CK-MB (CK-2) 4.50 Troponin I 0.476 Impressions: Head MRI 08/29/18 00:00 IMPRESSION: Large area of acute infarction posterior left MCA territory. Chest X-Ray 08/29/18 14:00 IMPRESSION: Mild cardiomegaly. No acute findings in the chest. Head CT 08/29/18 14:00 IMPRESSION: Right maxillary sinus fluid suggests acute infection. EVIDENCE OF ACUTE STROKE: NO. Head CTA 08/29/18 14:14 IMPRESSION: 1. Normal CTA bilateral carotids. 2. Attenuated vessels throughout the left cerebral hemisphere, MCA distribution. This suggests significant proximal stenosis/occlusion. Neck CTA 08/29/18 14:14 IMPRESSION: 1. Normal CTA bilateral carotids. 2. Attenuated vessels throughout the left cerebral hemisphere, MCA distribution. This suggests significant proximal stenosis/occlusion. Assessment and Plan - Diagnosis (1) Acute CVA (cerebrovascular accident) Is this a current diagnosis for this admission?: Yes Plan: 08/29/2018 based on the physical examination looks like patient has a TIA/stroke. Patient is going to be admitted to [facility] as inpatient. CODE STATUS is DNR/DNI. Stroke core measures are implemented patient is going to be n.p.o. until evaluated by speech therapist tomorrow. MRI of the brain was requested. She is going to be on GI prophylaxis with Protonix 40 mg IV twice daily and Lovenox 95 mg subcu every 12 hours. Started on aspirin atorvastatin and Plavix but at this time patient is going to be n.p.o. Lipid panel was requested for tomorrow morning. Patient's blood pressures are elevated in the emergency room latest blood pressure is 170/80 started on IV hydralazine 10 mg every 6 hours PRN for systolic blood pressure more than 160. Aspiration fall seizure precautions are requested Cabrera's catheter was requested. The of the neck was negative for a stenosis. T OT consult was requested high school social science teacher consult was requested for placement. 08/30/2018-MRI of the brain shows acute infarct involving the left MCA territory associated with dysarthria and right arm weakness and right lower leg weakness. No problems with bowel movements or urination. Speech consult was requested because patient failed swallowing evaluation yesterday. PT OT consult was requested high school social science teacher consult was requested for placement. Presently on Lovenox treatment dose subcu every 12 hours. Started on aspirin, simvastatin and Plavix but patient is unable to take any medications by mouth at this time. Aspiration fall seizure precautions are in place. 08/31/2018-patient admitted with right-sided weakness MRI was positive for stroke patient is on pured diet bedbound OT PT rehab consult was requested stroke core measures are implemented nurse is able to get the medications in crushed form. Echocardiogram is normal 09/01/2018-patient admitted with a CVA involving the right MCA territory affecting the right upper arm right lower leg and also the speech and swallowing. PT OT on board high school social science teacher working on the case for her to go to long-term care facility in [facility]. No acute events. Stroke core measures implemented during the hospital stay. 09/02/1899-99-mpdy-old female admitted for CVA with right-sided ben-parous is. Waiting for placement. Patient has also difficulty in swallowing she is on pure diet. No acute events the last 24 hours. Waiting for placement. stroke Core measures are implemented. We are going to discontinue meds from today. 09/03/2018-no acute events in the last 24 hours. Patient is on pured diet. Patient is unable to communicate. Has right-sided weakness with hemiplegia. Waiting for placement. (2) Hypertension Qualifiers: Hypertension type: essential hypertension Qualified Code(s): I10 - Essential (primary) hypertension Is this a current diagnosis for this admission?: Yes Plan: 08/29/2018-patient admitted with uncontrolled hypertension to start on IV hydralazine 10 mg every 6 hours as needed. No history of hypertension reported by the family members. 08/30/2018-patient latest blood pressure is 165/84 with heart rate of 114 presently on IV hydralazine 10 mg IV every 6 as needed for blood pressure more than systolic blood pressure more than 160. 08/31/2018-patient blood pressure today is 152/68. Pulse rate is 118. Presently on IV hydralazine 10 mg IV every 6 as needed. To start her on metoprolol 50 mg p.o. twice daily. 09/01/2018-patient came in with hypertensive emergency with systolic blood pressure of 211/diastolic blood pressure of 145 and repeat blood pressure was 213/167 followed by 189/78 these are the recordings in the emergency room after starting IV hydralazine 10 mg every 4 PRN for systolic blood pressure more than 160 blood pressure is improved today's blood pressure is 157/63. Presently on m etoprolol 50 mg p.o. every 12 hours started on lisinopril 10 mg daily from today. Hypertensive emergency resolving. 09/02/2018-patient admitted with hypertensive emergency which was resolved blood pressure today is 121/66 plan is to continue the present management. 09/03/2018-patient blood pressure today is 127/81 stable. Plan is to continue the present management. Currently on metoprolol 50 mg p.o. every 12 hours and lisinopril 10 mg daily. Patient is receiving medications in crushed form. (3) Obesity (BMI 30-39.9) Is this a current diagnosis for this admission?: No (4) Elevated troponin Is this a current diagnosis for this admission?: Yes - Time Time Spent with patient: 25-34 minutes Medications reviewed and adjusted accordingly: Yes Anticipated discharge: SNF
[2018-09-03 08:53] LABS: ABSOLUTE BASOPHILS # (AUTO) 0.1 10^3/uL (0.0-0.2); ABSOLUTE EOSINOPHILS # (AUTO) 0.3 10^3/uL (0.0-0.6); ABSOLUTE LYMPHOCYTES (AUTO) 3.4 10^3/uL (0.5-4.7); ABSOLUTE NEUT (AUTO) 4.9 10^3/uL (1.7-8.2); BASOPHILS % (AUTO) 0.6 % (0-2); EOSINOPHILS % (AUTO) 2.7 % (0-6); HEMATOCRIT 36.5 % (36.0-47.0); HEMOGLOBIN 12.3 g/dL (12.0-15.5); LYMPHOCYTES % (AUTO) 35.5 % (13-45); MEAN CORPUSCULAR HEMOGLOBIN 30.4 pg (27.0-33.4); MEAN CORPUSCULAR HGB CONC 33.8 g/dL (32.0-36.0); MEAN CORPUSCULAR VOLUME 90 fl (80-97); MONOCYTES % (AUTO) 10.1 % (3-13); PLATELET COUNT 228 10^3/uL (150-450); RED BLOOD COUNT 4.06 10^6/uL (3.72-5.28); RED CELL DISTRIBUTION WIDTH 12.5 % (11.5-14.0); SEGMENTED NEUTROPHILS % (AUTO) 51.1 % (42-78); TOTAL CELLS COUNTED % (AUTO) 100 %; WHITE BLOOD COUNT 9.5 10^3/uL (4.0-10.5)
[2018-09-03 09:02] LABS: ALANINE AMINOTRANSFERASE 21 U/L (9-52); ALBUMIN 3.2 g/dL (3.5-5.0); ALKALINE PHOSPHATASE 88 U/L (38-126); ANION GAP 7 (5-19); ASPARTATE AMINO TRANSFERASE 29 U/L (14-36); BILIRUBIN,DIRECT 0.2 mg/dL (0.0-0.4); BILIRUBIN,TOTAL 1.2 mg/dL (0.2-1.3); BLOOD UREA NITROGEN 23 mg/dL (7-20); CARBON DIOXIDE 28 mmol/L (22-30); CHLORIDE 100 mmol/L (98-107); GLUCOSE 99 mg/dL (75-110); POTASSIUM 4.1 mmol/L (3.6-5.0); TOTAL PROTEIN 6.5 g/dL (6.3-8.2)
[2018-09-03] MEDS: ASPIRIN 325 MG TABLET PO SCH (10:22)
[2018-09-03] MEDS: CLOPIDOGREL BISULFATE 75 MG TABLET PO SCH (10:22)
[2018-09-03] MEDS: LISINOPRIL 10 MG TABLET PO SCH (10:22)
[2018-09-03] MEDS: ENOXAPARIN SODIUM INJ 100 MG/1 ML DISP.SYRIN SUBCUT SCH ×2 (10:22→21:20)
[2018-09-03] MEDS: FAMOTIDINE 20 MG TABLET PO SCH ×2 (10:22→21:20)
[2018-09-03] MEDS: METOPROLOL TARTRATE 50 MG TABLET PO SCH ×2 (10:22→21:20)
[2018-09-03] MEDS: SIMVASTATIN 10 MG TABLET PO SCH (21:20)
[2018-09-04 00:57] LABS: APPEARANCE,URINE SLIGHTLY-CLOUDY; BILIRUBIN,URINE NEGATIVE (NEGATIVE); CALCIUM OXALATE CRYSTALS,URINE FEW /HPF; COLOR,URINE AMBER; GLUCOSE, URINE NEGATIVE (NEGATIVE); KETONES,URINE NEGATIVE (NEGATIVE); LEUKOCYTE ESTERASE,URINE SMALL (NEGATIVE); NITRITE,URINE NEGATIVE (NEGATIVE); PROTEIN,URINE 30 mg/dL (NEGATIVE); URINE SPECIFIC GRAVITY 1.024
[2018-09-04 05:02] LABS: HEMATOCRIT 34.8 % (36.0-47.0); HEMOGLOBIN 11.5 g/dL (12.0-15.5); MEAN CORPUSCULAR HEMOGLOBIN 30.1 pg (27.0-33.4); MEAN CORPUSCULAR HGB CONC 33.2 g/dL (32.0-36.0); MEAN CORPUSCULAR VOLUME 91 fl (80-97); PLATELET COUNT 253 10^3/uL (150-450); RED BLOOD COUNT 3.83 10^6/uL (3.72-5.28); RED CELL DISTRIBUTION WIDTH 12.2 % (11.5-14.0); WHITE BLOOD COUNT 9.2 10^3/uL (4.0-10.5)
[2018-09-04 05:29] LABS: ALANINE AMINOTRANSFERASE 20 U/L (9-52); ALKALINE PHOSPHATASE 83 U/L (38-126); ANION GAP 7 (5-19); ASPARTATE AMINO TRANSFERASE 27 U/L (14-36); BILIRUBIN,DIRECT 0.3 mg/dL (0.0-0.4); BILIRUBIN,TOTAL 1.3 mg/dL (0.2-1.3); BLOOD UREA NITROGEN 20 mg/dL (7-20); CARBON DIOXIDE 30 mmol/L (22-30); CHLORIDE 99 mmol/L (98-107); GLUCOSE 107 mg/dL (75-110); TOTAL PROTEIN 6.2 g/dL (6.3-8.2)
[2018-09-04 08:21] LABS: APPEARANCE,URINE CLOUDY; BILIRUBIN,URINE NEGATIVE (NEGATIVE); CALCIUM OXALATE CRYSTALS,URINE FEW /HPF; COLOR,URINE AMBER; GLUCOSE, URINE NEGATIVE (NEGATIVE); KETONES,URINE NEGATIVE (NEGATIVE); LEUKOCYTE ESTERASE,URINE LARGE (NEGATIVE); NITRITE,URINE NEGATIVE (NEGATIVE); PROTEIN,URINE 30 mg/dL (NEGATIVE); URINE SPECIFIC GRAVITY 1.019
--- NOTE | 2018-09-04 09:43 | PDOC PROGRESS REPORT ---
Subjective Progress Note for:: 09/04/18 Subjective:: 82 year old female history of osteoarthritis, gastric further reflux disease, depression this information got after reviewing her medications and the family members unable to give her past medical history on the patient is unable to communicate. Patient does have any previous admissions. As per the family the alarm went off at the patient's home and the patient is living alone the [facility]'s department call the patient's son to request to turn off the alarm which she did then he got a call again saying that his mom is unable to talk and she has a problem with ambulation they recommended to call the EMS EMS came and brought her to the emergency room for further evaluation. In the emergency room patient is unable to communicate but not in distress. Work-up shows no stroke in the CT head CT of the neck was negative for any stenosis. At the time of my examination patient is unable to talk at all and she has difficulty in following the commands. Also noticed to have weakness on the right upper arm. Decided to put her in IMCU for further management. Stroke parameters is going to be implemented. 08/30/2018 82-year-old female came to the emergency room with complaints of difficulty in speech and right-sided weakness MRI of the brain shows acute inf arct in the left MCA territory. CT of the neck was negative for carotid artery stenosis. Patient unable to speak but responding by nodding her head and shaking her head. Not in distress. No acute events in the last 24 hours. Discussed the plan of care with the family members they agreed with rehab placement. 08/31/2018 82-year-old female admitted with stroke with right-sided weakness and dysarthria found to have a stroke in the left MCA territory presently on pured diet. PT consult OT consult rehab consult was requested. No acute event the last 24 hours. Comfortable in the bed unable to communicate well. 09/01/[id number]-bvhd-old female admitted with a stroke MRI confirmed that she had a left MCA territory stroke affecting the right side of the body and a speech. She is getting pured diet and medications in crushed form. Family requesting for placement in the [facility]. ordnance equipment worker is working on the case. Probably she will go to the alf either Tuesday or Tuesday. No acute events in the last 24 hours. Afebrile. 09/02/[id number]-vhob-old female admitted with stroke confirmed by MRI. Patient has little bit of difficulty in taking pudding. No acute change in the last 24 hours. Afebrile. Waiting for placement. 09/03/[id number]-gaug-old female admitted with a stroke confirmed with MRI she does not have any pulmonary tolerate the right arm , barely able to move her right foot. Patient looks like has a hemiplegia with right-sided hemiplegia. Physical therapy is working with the patient ,space planner is working for placement in [facility]. 09/04/[id number]-hbvx-old female admitted with history of stroke involving the right side of the body with hemiplegia. Waiting for placement. No acute events as 24 hours. Afebrile. Still unable to communicate. She is responding by blinking her eyes and nodding her head. Able to tolerate the pured diet. Reason For Visit: STROKE Physical Exam Vital Signs: Temp Pulse Resp BP Pulse Ox 98.0 F 74 20 114/49 L 100 09/04/18 07:10 09/04/18 07:10 09/04/18 07:10 09/04/18 07:10 09/04/18 07:10 Intake & Output 09/03/18 09/04/18 09/05/18 06:59 06:59 06:59 Intake Total 674 422 Output Total 50 650 Balance 624 -228 Weight 88.1 kg 95 kg General appearance: PRESENT: no acute distress, morbidly obese Head exam: PRESENT: atraumatic Eye exam: PRESENT: PERRLA Mouth exam: PRESENT: moist, neck supple, tongue midline Teeth exam: PRESENT: poor dentation Neck exam: ABSENT: carotid bruit, JVD, lymphadenopathy, thyromegaly Respiratory exam: PRESENT: decreased breath sounds Cardiovascular exam: PRESENT: RRR. ABSENT: diastolic murmur, rubs, systolic murmur GI/Abdominal exam: PRESENT: normal bowel sounds, soft. ABSENT: distended, guarding, mass, organolmegaly, rebound, tenderness Rectal exam: PRESENT: deferred Extremities exam: PRESENT: full ROM. ABSENT: calf tenderness, clubbing, pedal edema Neurological exam: PRESENT: alert, awake, other - Right hemiplegia with the difficulty in communication and swallowing. Psychiatric exam: PRESENT: appropriate affect, normal mood. ABSENT: homicidal ideation, suicidal ideation Results Laboratory Results: 09/04/18 04:23 09/04/18 04:23 09/03/18 09/03/18 09/04/18 08:10 18:35 04:23 WBC 9.2 RBC 3.83 Hgb 11.5 L Hct 34.8 L MCV 91 MCH 30.1 MCHC 33.2 RDW 12.2 Plt Count 253 Sodium Potassium Chloride Carbon Dioxide Anion Gap BUN Creatinine Est GFR ( Amer) Est GFR (Non-Af Amer) Glucose Calcium Magnesium 2.0 Total Bilirubin AST ALT Alkaline Phosphatase Total Protein Albumin Urine Color VITA Urine Appearance SLIGHTLY-CLOUDY Urine pH 6.0 Ur Specific [place] 1.024 Urine Protein 30 H Urine Glucose (UA) NEGATIVE Urine Ketones NEGATIVE Urine Blood SMALL H Urine Nitrite NEGATIVE Ur Leukocyte Esterase SMALL H Urine WBC (Auto) 34 Urine RBC (Auto) 3 09/04/18 09/04/18 04:23 07:00 WBC RBC Hgb Hct MCV MCH MCHC RDW Plt Count Sodium 135.6 L Potassium 4.0 Chloride 99 Carbon Dioxide 30 Anion Gap 7 BUN 20 Creatinine 0.78 Est GFR ( Amer) > 60 Est GFR (Non-Af Amer) > 60 Glucose 107 Calcium 9.0 Magnesium Total Bilirubin 1.3 AST 27 ALT 20 Alkaline Phosphatase 83 Total Protein 6.2 L Albumin 3.0 L Urine Color VITA Urine Appearance CLOUDY Urine pH 7.0 Ur Specific [place] 1.019 Urine Protein 30 H Urine Glucose (UA) NEGATIVE Urine Ketones NEGATIVE Urine Blood MODERATE H Urine Nitrite NEGATIVE Ur Leukocyte Esterase LARGE H Urine WBC (Auto) 79 Urine RBC (Auto) 2 08/29/18 08/29/18 08/29/18 14:17 14:17 19:10 Creatine Kinase 34 37 CK-MB (CK-2) 0.93 Troponin I < 0.012 08/29/18 08/30/18 08/30/18 19:10 01:14 01:14 Creatine Kinase 54 CK-MB (CK-2) Troponin I < 0.012 0.339 08/30/18 08/30/18 08/30/18 06:35 06:35 08:40 Creatine Kinase 91 117 CK-MB (CK-2) Troponin I 0.460 08/30/18 08/30/18 08/30/18 08:40 14:27 14:27 Creatine Kinase 160 H CK-MB (CK-2) 2.51 3.71 Troponin I 0.386 0.263 08/30/18 08/30/18 20:38 20:38 Creatine Kinase 205 H CK-MB (CK-2) 4.50 Troponin I 0.476 Impressions: Head MRI 08/29/18 00:00 IMPRESSION: Large area of acute infarction posterior left MCA territory. Chest X-Ray 08/29/18 14:00 IMPRESSION: Mild cardiomegaly. No acute findings in the chest. Head CT 08/29/18 14:00 IMPRESSION: Right maxillary sinus fluid suggests acute infection. EVIDENCE OF ACUTE STROKE: NO. Head CTA 08/29/18 14:14 IMPRESSION: 1. Normal CTA bilateral carotids. 2. Attenuated vessels throughout the left cerebral hemisphere, MCA distribution. This suggests significant proximal stenosis/occlusion. Neck CTA 08/29/18 14:14 IMPRESSION: 1. Normal CTA bilateral carotids. 2. Attenuated vessels throughout the left cerebral hemisphere, MCA distribution. This suggests significant proximal stenosis/occlusion. Assessment and Plan - Diagnosis (1) Acute CVA (cerebrovascular accident) Is this a current diagnosis for this admission?: Yes Plan: 08/29/2018 based on the physical examination looks like patient has a TIA/stroke. Patient is going to be admitted to [facility] as inpatient. CODE STATUS is DNR/DNI. Stroke core measures are implemented patient is going to be n.p.o. until evaluated by speech therapist tomorrow. MRI of the brain was requested. She is going to be on GI prophylaxis with Protonix 40 mg IV twice daily and Lovenox 95 mg subcu every 12 hours. Started on aspirin atorvastatin and Plavix but at this time patient is going to be n.p.o. Lipid panel was requested for tomorrow morning. Patient's blood pressures are elevated in the emergency room latest blood pressure is 170/80 started on IV hydralazine 10 mg every 6 hours PRN for systolic blood pressure more than 160. Aspiration fall seizure precautions are requested Cabrera's catheter was requested. The of the neck was negative for a stenosis. T OT consult was requested long term care social worker consult was requested for placement. 08/30/2018-MRI of the brain shows acute infarct involving the left MCA territory associated with dysarthria and right arm weakness and right lower leg weakness. No problems with bowel movements or urination. Speech consult was requested because patient failed swallowing evaluation yesterday. PT OT consult was requested long term care social worker consult was requested for placement. Presently on Lovenox treatment dose subcu every 12 hours. Started on aspirin, simvastatin and Plavix but patient is unable to take any medications by mouth at this time. Aspiration fall seizure precautions are in place. 08/31/2018-patient admitted with right-sided weakness MRI was positive for stroke patient is on pured diet bedbound OT PT rehab consult was requested stroke core measures are implemented nurse is able to get the medications in crushed form. Echocardiogram is normal 09/01/2018-patient admitted with a CVA involving the right MCA territory affecting the right upper arm right lower leg and also the speech and swallowing. PT OT on board long term care social worker working on the case for her to go to long-term care facility in [facility]. No acute events. Stroke core measures implemented during the hospital stay. 09/02/1809-17-aotg-old female admitted for CVA with right-sided ben-parous is. Waiting for placement. Patient has also difficulty in swallowing she is on pure diet. No acute events the last 24 hours. Waiting for placement. stroke Core measures are implemented. We are going to discontinue meds from today. 09/03/2018-no acute events in the last 24 hours. Patient is on pured diet. Patient is unable to communicate. Has right-sided weakness with hemiplegia. Waiting for placement. 09/04/2018-no acute events in the last 24 hours. Afebrile. Waiting for placement. Patient has dysarthria and difficulty in swallowing presently on a pured diet. (2) Hypertension Qualifiers: Hypertension type: essential hypertension Qualified Code(s): I10 - Essential (primary) hypertension Is this a current diagnosis for this admission?: Yes Plan: 08/29/2018-patient admitted with uncontrolled hypertension to start on IV hydralazine 10 mg every 6 hours as needed. No history of hypertension reported by the family members. 08/30/2018-patient latest blood pressure is 165/84 with heart rate of 114 presently on IV hydralazine 10 mg IV every 6 as needed for blood pressure more than systolic blood pressure more than 160. 08/31/2018-patient blood pressure today is 152/68. Pulse rate is 118. Presently on IV hydralazine 10 mg IV every 6 as needed. To start her on metoprolol 50 mg p.o. twice daily. 09/01/2018-patient came in with hypertensive emergency with systolic blood pressure of 211/diastolic blood pressure of 145 and repeat blood pressure was 213/167 followed by 189/78 these are the recordings in the emergency room after starting IV hydralazine 10 mg every 4 PRN for systolic blood pressure more than 160 blood pressure is improved today's blood pressure is 157/63. Presently on metoprolol 50 mg p.o. every 12 hours started on lisinopril 10 mg daily from today. Hypertensive emergency resolving. 09/02/2018-patient admitted with hypertensive emergency which was resolved blood pressure today is 121/66 plan is to continue the present management. 09/03/2018-patient blood pressure today is 127/81 stable. Plan is to continue the present management. Currently on metoprolol 50 mg p.o. every 12 hours and lisinopril 10 mg daily. Patient is receiving medications in crushed form. 09/04/2018-patient blood pressure today is 114/49 stable. Presently on metoprolol 50 mg p.o. every 12 hours lisinopril 10 mg daily. Plan is to continue the present management. (3) Obesity (BMI 30-39.9) Is this a current diagnosis for this admission?: No (4) Elevated troponin Is this a current diagnosis for this admission?: Yes Plan: 08/30/2018-patient came in with normal troponins the third troponin is 0.33 and fourth troponin is 0.46. Echocardiogram and cardiology consult will be requested. 08/31/2018-patient came in with normal troponins follow-up troponin shows trended up most likely secondary to neurogenic myocardial ischemia. Patient unable to comunicate, no signs of any distress. 09/04/2018-patient came in with elevated troponins initially most likely secondary to neurogenic myocardial ischemia. - Time Time Spent with patient: 25-34 minutes Medications reviewed and adjusted accordingly: Yes Anticipated discharge: SNF
[2018-09-04] MEDS: LISINOPRIL 10 MG TABLET PO SCH (10:28)
[2018-09-04] MEDS: FAMOTIDINE 20 MG TABLET PO SCH ×2 (10:28→21:48)
[2018-09-04] MEDS: ENOXAPARIN SODIUM INJ 100 MG/1 ML DISP.SYRIN SUBCUT SCH ×2 (10:28→21:49)
[2018-09-04] MEDS: METOPROLOL TARTRATE 50 MG TABLET PO SCH ×2 (10:28→21:49)
[2018-09-04] MEDS: CLOPIDOGREL BISULFATE 75 MG TABLET PO SCH (10:28)
[2018-09-04] MEDS: ASPIRIN 325 MG TABLET PO SCH (10:28)
[2018-09-04] MEDS: SIMVASTATIN 10 MG TABLET PO SCH (21:48)
--- NOTE | 2018-09-05 09:00 | PDOC PROGRESS REPORT ---
Subjective Progress Note for:: 09/05/18 Subjective:: 82 year old female history of osteoarthritis, gastric further reflux disease, depression this information got after reviewing her medications and the family members unable to give her past medical history on the patient is unable to communicate. Patient does have any previous admissions. As per the family the alarm went off at the patient's home and the patient is living alone the [facility]'s department call the patient's son to request to turn off the alarm which she did then he got a call again saying that his mom is unable to talk and she has a problem with ambulation they recommended to call the EMS EMS came and brought her to the emergency room for further evaluation. In the emergency room patient is unable to communicate but not in distress. Work-up shows no stroke in the CT head CT of the neck was negative for any stenosis. At the time of my examination patient is unable to talk at all and she has difficulty in following the commands. Also noticed to have weakness on the right upper arm. Decided to put her in IMCU for further management. Stroke parameters is going to be implemented. 08/30/2018 82-year-old female came to the emergency room with complaints of difficulty in speech and right-sided weakness MRI of the brain shows acute inf arct in the left MCA territory. CT of the neck was negative for carotid artery stenosis. Patient unable to speak but responding by nodding her head and shaking her head. Not in distress. No acute events in the last 24 hours. Discussed the plan of care with the family members they agreed with rehab placement. 08/31/2018 82-year-old female admitted with stroke with right-sided weakness and dysarthria found to have a stroke in the left MCA territory presently on pured diet. PT consult OT consult rehab consult was requested. No acute event the last 24 hours. Comfortable in the bed unable to communicate well. 09/01/[id number]-kkyd-old female admitted with a stroke MRI confirmed that she had a left MCA territory stroke affecting the right side of the body and a speech. She is getting pured diet and medications in crushed form. Family requesting for placement in the [facility]. rock room worker is working on the case. Probably she will go to the care home either Tuesday or Tuesday. No acute events in the last 24 hours. Afebrile. 09/02/[id number]-uaqf-old female admitted with stroke confirmed by MRI. Patient has little bit of difficulty in taking pudding. No acute change in the last 24 hours. Afebrile. Waiting for placement. 09/03/[id number]-gwoo-old female admitted with a stroke confirmed with MRI she does not have any pulmonary tolerate the right arm , barely able to move her right foot. Patient looks like has a hemiplegia with right-sided hemiplegia. Physical therapy is working with the patient ,mission planner is working for placement in [facility]. 09/04/[id number]-gntf-old female admitted with history of stroke involving the right side of the body with hemiplegia. Waiting for placement. No acute events as 24 hours. Afebrile. Still unable to communicate. She is responding by blinking her eyes and nodding her head. Able to tolerate the pured diet. 09/05/[id number]-uypx-old female admitted with stroke. With right hemiplegia. Physical therapy is working with the patient. production planner working for placement. No acute events in the last 24 hours. Afebrile. Reason For Visit: STROKE Physical Exam Vital Signs: Temp Pulse Resp BP Pulse Ox 97.4 F 73 18 131/43 H 100 09/05/18 07:30 09/05/18 07:30 09/05/18 07:30 09/05/18 07:30 09/05/18 07:30 Intake & Output 09/04/18 09/05/18 09/06/18 06:59 06:59 06:59 Intake Total 422 1110 Output Total 650 400 Balance -228 710 Weight 95 kg 95.8 kg General appearance: PRESENT: no acute distress Head exam: PRESENT: atraumatic Eye exam: PRESENT: PERRLA Mouth exam: PRESENT: dry mucosa Teeth exam: PRESENT: poor dentation Neck exam: ABSENT: carotid bruit, JVD, lymphadenopathy, thyromegaly Respiratory exam: PRESENT: clear to auscultation elsie. ABSENT: rales, rhonchi, wheezes Cardiovascular exam: PRESENT: RRR. ABSENT: diastolic murmur, rubs, systolic murmur GI/Abdominal exam: PRESENT: normal bowel sounds, soft. ABSENT: distended, guar ding, mass, organolmegaly, rebound, tenderness Rectal exam: PRESENT: deferred Extremities exam: PRESENT: full ROM. ABSENT: calf tenderness, clubbing, pedal edema Neurological exam: PRESENT: alert, awake, other - Right hemiplegia associated with the difficulty in communicating and difficulty in swallowing. Psychiatric exam: PRESENT: appropriate affect, normal mood. ABSENT: homicidal ideation, suicidal ideation Results Laboratory Results: 09/04/18 04:23 09/04/18 04:23 08/29/18 08/29/18 08/29/18 14:17 14:17 19:10 Creatine Kinase 34 37 CK-MB (CK-2) 0.93 Troponin I < 0.012 08/29/18 08/30/18 08/30/18 19:10 01:14 01:14 Creatine Kinase 54 CK-MB (CK-2) Troponin I < 0.012 0.339 08/30/18 08/30/18 08/30/18 06:35 06:35 08:40 Creatine Kinase 91 117 CK-MB (CK-2) Troponin I 0.460 08/30/18 08/30/18 08/30/18 08:40 14:27 14:27 Creatine Kinase 160 H CK-MB (CK-2) 2.51 3.71 Troponin I 0.386 0.263 08/30/18 08/30/18 20:38 20:38 Creatine Kinase 205 H CK-MB (CK-2) 4.50 Troponin I 0.476 Impressions: Head MRI 08/29/18 00:00 IMPRESSION: Large area of acute infarction posterior left MCA territory. Chest X-Ray 08/29/18 14:00 IMPRESSION: Mild cardiomegaly. No acute findings in the chest. Head CT 08/29/18 14:00 IMPRESSION: Right maxillary sinus fluid suggests acute infection. EVIDENCE OF ACUTE STROKE: NO. Head CTA 08/29/18 14:14 IMPRESSION: 1. Normal CTA bilateral carotids. 2. Attenuated vessels throughout the left cerebral hemisphere, MCA distribution. This suggests significant proximal stenosis/occlusion. Neck CTA 08/29/18 14:14 IMPRESSION: 1. Normal CTA bilateral carotids. 2. Attenuated vessels throughout the left cerebral hemisphere, MCA distribution. This suggests significant proximal stenosis/occlusion. Assessment and Plan - Diagnosis (1) Acute CVA (cerebrovascular accident) Is this a current diagnosis for this admission?: Yes Plan: 08/29/2018 based on the physical examination looks like patient has a TIA/stroke. Patient is going to be admitted to [facility] as inpatient. CODE STATUS is DNR/DNI. Stroke core measures are implemented patient is going to be n.p.o. until ev aluated by speech therapist tomorrow. MRI of the brain was requested. She is going to be on GI prophylaxis with Protonix 40 mg IV twice daily and Lovenox 95 mg subcu every 12 hours. Started on aspirin atorvastatin and Plavix but at this time patient is going to be n.p.o. Lipid panel was requested for tomorrow morning. Patient's blood pressures are elevated in the emergency room latest blood pressure is 170/80 started on IV hydralazine 10 mg every 6 hours PRN for systolic blood pressure more than 160. Aspiration fall seizure precautions are requested Cabrera's catheter was requested. The of the neck was negative for a stenosis. T OT consult was requested healthcare social worker consult was requested for placement. 08/30/2018-MRI of the brain shows acute infarct involving the left MCA territory associated with dysarthria and right arm weakness and right lower leg weakness. No problems with bowel movements or urination. Speech consult was requested because patient failed swallowing evaluation yesterday. PT OT consult was requested healthcare social worker consult was requested for placement. Presently on Lovenox treatment dose subcu every 12 hours. Started on aspirin, simvastatin and Plavix but patient is unable to take any medications by mouth at this time. Aspiration fall seizure precautions are in place. 08/31/2018-patient admitted with right-sided weakness MRI was positive for stroke patient is on pured diet bedbound OT PT rehab consult was requested stroke core measures are implemented nurse is able to get the medications in crushed form. Echocardiogram is normal 09/01/2018-patient admitted with a CVA involving the right MCA territory affecting the right upper arm right lower leg and also the speech and swallowing. PT OT on board healthcare social worker working on the case for her to go to long-term care facility in [facility]. No acute events. Stroke core measures implemented during the hospital stay. 09/02/1855-53-sfpk-old female admitted for CVA with right-sided ben-parous is. Waiting for placement. Patient has also difficulty in swallowing she is on pure diet. No acute events the last 24 hours. Waiting for placement. stroke Core measures are implemented. We are going to discontinue meds from today. 09/03/2018-no acute events in the last 24 hours. Patient is on pured diet. Patient is unable to communicate. Has right-sided weakness with hemiplegia. Waiting for placement. 09/04/2018-no acute events in the last 24 hours. Afebrile. Waiting for placeme nt. Patient has dysarthria and difficulty in swallowing presently on a pured diet. 09/05/[id number]-kvyq-old female admitted with a stroke physical therapy is working with the patient and waiting for care home placement. (2) Hypertension Qualifiers: Hypertension type: essential hypertension Qualified Code(s): I10 - Essential (primary) hypertension Is this a current diagnosis for this admission?: Yes Plan: 08/29/2018-patient admitted with uncontrolled hypertension to start on IV hydralazine 10 mg every 6 hours as needed. No history of hypertension reported by the family members. 08/30/2018-patient latest blood pressure is 165/84 with heart rate of 114 presently on IV hydralazine 10 mg IV every 6 as needed for blood pressure more than systolic blood pressure more than 160. 08/31/2018-patient blood pressure today is 152/68. Pulse rate is 118. Presently on IV hydralazine 10 mg IV every 6 as needed. To start her on metoprolol 50 mg p.o. twice daily. 09/01/2018-patient came in with hypertensive emergency with systolic blood pressure of 211/diastolic blood pressure of 145 and repeat blood pressure was 213/167 followed by 189/78 these are the recordings in the emergency room after starting IV hydralazine 10 mg every 4 PRN for systolic blood pressure more than 160 blood pressure is improved today's blood pressure is 157/63. Presently on metoprolol 50 mg p.o. every 12 hours started on lisinopril 10 mg daily from today. Hypertensive emergency resolving. 09/02/2018-patient admitted with hypertensive emergency which was resolved blood pressure today is 121/66 plan is to continue the present management. 09/03/2018-patient blood pressure today is 127/81 stable. Plan is to continue the present management. Currently on metoprolol 50 mg p.o. every 12 hours and lisinopril 10 mg daily. Patient is receiving medications in crushed form. 09/04/2018-patient blood pressure today is 114/49 stable. Presently on metoprolol 50 mg p.o. every 12 hours lisinopril 10 mg daily. Plan is to continue the present management. 09/05/2018-patient blood pressure today is 138/51. Stable. Presently on metoprolol 50 mg p.o. every 12 hours on the lisinopril 10 mg p.o. daily. Plan is to continue the present management. (3) Obesity (BMI 30-39.9) Is this a current diagnosis for this admission?: No (4) Elevated troponin Is this a current diagnosis for this admission?: Yes - Time Time Spent with patient: 25-34 minutes Medications reviewed and adjusted accordingly: Yes Anticipated discharge: SNF
[2018-09-05] MEDS: ASPIRIN 325 MG TABLET PO SCH (09:29)
[2018-09-05] MEDS: FAMOTIDINE 20 MG TABLET PO SCH ×2 (09:29→21:54)
[2018-09-05] MEDS: LISINOPRIL 10 MG TABLET PO SCH (09:29)
[2018-09-05] MEDS: CLOPIDOGREL BISULFATE 75 MG TABLET PO SCH (09:29)
[2018-09-05] MEDS: ENOXAPARIN SODIUM INJ 100 MG/1 ML DISP.SYRIN SUBCUT SCH ×2 (09:29→21:54)
[2018-09-05] MEDS: METOPROLOL TARTRATE 50 MG TABLET PO SCH ×2 (09:29→21:54)
[2018-09-05] MEDS: SIMVASTATIN 10 MG TABLET PO SCH (21:53)
[2018-09-06 05:30] LABS: HEMATOCRIT 33.9 % (36.0-47.0); HEMOGLOBIN 11.1 g/dL (12.0-15.5); MEAN CORPUSCULAR HEMOGLOBIN 29.7 pg (27.0-33.4); MEAN CORPUSCULAR HGB CONC 32.9 g/dL (32.0-36.0); MEAN CORPUSCULAR VOLUME 90 fl (80-97); PLATELET COUNT 300 10^3/uL (150-450); RED BLOOD COUNT 3.75 10^6/uL (3.72-5.28); RED CELL DISTRIBUTION WIDTH 12.5 % (11.5-14.0); WHITE BLOOD COUNT 11.7 10^3/uL (4.0-10.5)
--- NOTE | 2018-09-06 08:41 | PDOC TRANSFER SUMMARY ---
General - Admit/Disc Date/PCP Admission Date/Primary Care Provider: 08/29/18 18:15 RYAN NICE MD Discharge Date: 09/06/18 - Discharge Diagnosis (1) Acute CVA (cerebrovascular accident) Is this a current diagnosis for this admission?: Yes Summary: 08/29/2018 based on the physical examination looks like patient has a TIA/stroke. Patient is going to be admitted to [facility] as inpatient. CODE STATUS is DNR/DNI. Stroke core measures are implemented patient is going to be n.p.o. until evaluated by speech therapist tomorrow. MRI of the brain was requested. She is going to be on GI prophylaxis with Protonix 40 mg IV twice daily and Lovenox 95 mg subcu every 12 hours. Started on aspirin atorvastatin and Plavix but at this time patient is going to be n.p.o. Lipid panel was requested for tomorrow morning. Patient's blood pressures are elevated in the emergency room latest blood pressure is 170/80 started on IV hydralazine 10 mg every 6 hours PRN for systolic blood pressure more than 160. Aspiration fall seizure precautions are requested Cabrera's catheter was requested. The of the neck was negative for a stenosis. T OT consult was requested psychosocial rehabilitation counselor consult was requested for placement. 08/30/2018-MRI of the brain shows acute infarct involving the left MCA territory associated with dysarthria and right arm weakness and right lower leg weakness. No problems with bowel movements or urination. Speech consult was requested because patient failed swallowing evaluation yesterday. PT OT consult was requested psychosocial rehabilitation counselor consult was requested for placement. Presently on Lovenox treatment dose subcu every 12 hours. Started on aspirin, simvastatin an d Plavix but patient is unable to take any medications by mouth at this time. Aspiration fall seizure precautions are in place. 08/31/2018-patient admitted with right-sided weakness MRI was positive for stroke patient is on pured diet bedbound OT PT rehab consult was requested stroke core measures are implemented nurse is able to get the medications in crushed form. Echocardiogram is normal 09/01/2018-patient admitted with a CVA involving the right MCA territory affecting the right upper arm right lower leg and also the speech and swallowing. PT OT on board psychosocial rehabilitation counselor working on the case for her to go to long-term care facility in [facility]. No acute events. Stroke core measures implemented during the hospital stay. 09/02/1811-76-ihvo-old female admitted for CVA with right-sided ben-parous is. Waiting for placement. Patient has also difficulty in swallowing she is on pur e diet. No acute events the last 24 hours. Waiting for placement. stroke Core measures are implemented. We are going to discontinue meds from today. 09/03/2018-no acute events in the last 24 hours. Patient is on pured diet. Patient is unable to communicate. Has right-sided weakness with hemiplegia. Waiting for placement. 09/04/2018-no acute events in the last 24 hours. Afebrile. Waiting for placement. Patient has dysarthria and difficulty in swallowing presently on a pured diet. 09/05/[id number]-hgew-old female admitted with a stroke physical therapy is working with the patient and waiting for [facility] placement. 09/06/[id number]-laas-old female admitted with stroke stroke or peripheral edematous implemented during the hospital stay PT OT consult was requested rehab consult was requested patient got replacement and the rehab facility at [place]. She is going there today. (2) Hypertension Is this a current diagnosis for this admission?: Yes Summary: 08/29/2018-patient admitted with uncontrolled hypertension to start on IV hydralazine 10 mg every 6 hours as needed. No history of hypertension reported by the family members. 08/30/2018-patient latest blood pressure is 165/84 with heart rate of 114 prese ntly on IV hydralazine 10 mg IV every 6 as needed for blood pressure more than systolic blood pressure more than 160. 08/31/2018-patient blood pressure today is 152/68. Pulse rate is 118. Presently on IV hydralazine 10 mg IV every 6 as needed. To start her on metoprolol 50 mg p.o. twice daily. 09/01/2018-patient came in with hypertensive emergency with systolic blood pr essure of 211/diastolic blood pressure of 145 and repeat blood pressure was 213/167 followed by 189/78 these are the recordings in the emergency room after starting IV hydralazine 10 mg every 4 PRN for systolic blood pressure more than 160 blood pressure is improved today's blood pressure is 157/63. Presently on metoprolol 50 mg p.o. every 12 hours started on lisinopril 10 mg daily from today. Hypertensive emergency resolving. 09/02/2018-patient admitted with hypertensive emergency which was resolved blood pressure today is 121/66 plan is to continue the present management. 09/03/2018-patient blood pressure today is 127/81 stable. Plan is to continue the present management. Currently on metoprolol 50 mg p.o. every 12 hours and lisinopril 10 mg daily. Patient is receiving medications in crushed form. 09/04/2018-patient blood pressure today is 114/49 stable. Presently on metoprolol 50 mg p.o. every 12 hours lisinopril 10 mg daily. Plan is to continue the present management. 09/05/2018-patient blood pressure today is 138/51. Stable. Presently on metoprolol 50 mg p.o. every 12 hours on the lisinopril 10 mg p.o. daily. Plan is to continue the present management. 09/06/2018-patient blood pressure today is 115/45 stable. Plan is to [facility] the present management at [facility]. (3) Obesity (BMI 30-39.9) Is this a current diagnosis for this admission?: No (4) Elevated troponin Is this a current diagnosis for this admission?: Yes - Additional Information Resuscitation Status: Do Not Resuscitate Home Medications: Amitriptyline HCl [Elavil 25 mg Tablet] 25 mg PO QHS 08/29/18 Carvedilol [Coreg 3.125 mg Tablet] 3.125 mg PO Q12 08/29/18 Meloxicam [Mobic] 7.5 mg PO BID 08/29/18 Pantoprazole Sodium [Protonix [address] Tablet] 40 mg PO Q6AM 08/29/18 Venlafaxine HCl ER [Effexor Xr 37.5 mg Cap.sr] 37.5 mg PO Q12 08/29/18 Aspirin [Aspirin 325 mg Tablet] 325 mg PO DAILY tablet 09/06/18 Clopidogrel Bisulfate [Plavix 75 mg Tablet] 75 mg PO DAILY tablet 09/06/18 Famotidine [Pepcid 20 mg Tablet] 20 mg PO Q12 tablet 09/06/18 Lisinopril [Prinivil 10 mg Tablet] 10 mg PO DAILY tablet 09/06/18 Metoprolol Tartrate [Lopressor 50 mg Tablet] 50 mg PO Q12 tablet 09/06/18 Simvastatin [Zocor 10 mg Tablet] 10 mg PO QHS tablet 09/06/18 History of Present Illness Admission Date/PCP: 08/29/18 18:15 RYAN NICE MD 82 year old female history of osteoarthritis, gastric further reflux disease, depression this information got after reviewing her medications and the family members unable to give her past medical history on the patient is unable to communicate. Patient does have any previous admissions. As per the family the alarm went off at the patient's home and the patient is living alone the [facility] department call the patient's son to request to turn off the alarm which she did then he got a call again saying that his mom is unable to talk and she has a problem with ambulation they recommended to call the EMS EMS came and brought her to the emergency room for further evaluation. In the emergency room patient is unable to communicate but not in distress. Work-up shows no stroke in the CT head CT of the neck was negative for any stenosis. At the time of my examination patient is unable to talk at all and she has difficulty in following the commands. Also noticed to have weakness on the right upper arm. Decided to put her in IMCU for further management. Stroke parameters is going to be implemented. 08/30/2018 82-year-old female came to the emergency room with complaints of difficulty in speech and right-sided weakness MRI of the brain shows acute infarct in the left MCA territory. CT of the neck was negative for carotid artery stenosis. Patient unable to speak but responding by nodding her head and shaking her head. Not in distress. No acute events in the last 24 hours. Discussed the plan of care with the family members they agreed with rehab placement. 08/31/2018 82-year-old female admitted with stroke with right-sided weakness and dysarthria found to have a stroke in the left MCA territory presently on pured diet. PT consult OT consult rehab consult was requested. No acute event the last 24 hours. Comfortable in the bed unable to communicate well. 09/01/[id number]-eztj-old female admitted with a stroke MRI confirmed that she had a left MCA territory stroke affecting the right side of the body and a speech. She is getting pured diet and medications in crushed form. Family requesting for placement in the [facility]. dry kiln worker is working on the case. Probably she will go to the [facility] either Tuesday or Tuesday. No acute events in the last 24 hours. Afebrile. 09/02/[id number]-rzdt-old female admitted with stroke confirmed by MRI. Patient has little bit of difficulty in taking pudding. No acute change in the last 24 hours. Afebrile. Waiting for placement. 09/03/20183713-55-rgsz-old female admitted with a stroke confirmed with MRI she does not have any pulmonary tolerate the right arm , barely able to move her right foot. Patient looks like has a hemiplegia with right-sided hemiplegia. Physical therapy is working with the patient ,conference planner is working for placement in [facility]. 09/04/20183275-09-cktk-old female admitted with history of stroke involving the right side of the body with hemiplegia. Waiting for placement. No acute events as 24 hours. Afebrile. Still unable to communicate. She is responding by blinking her eyes and nodding her head. Able to tolerate the pured diet. 09/05/20181514-43-hpca-old female admitted with stroke. With right hemiplegia. Physical therapy is working with the patient. resource management planner working for placement. No acute events in the last 24 hours. Afebrile. 09/06/20184705-71-nimc-old female admitted with a stroke with right hemiplegia she is going to the rehab facility today.- History of Present Illness: CRISTOFER CARR is a 82 year old female history of osteoarthritis, gastric further reflux disease, depression this information got after reviewing her medications and the family members unable to give her past medical history on the patient is unable to communicate. Patient does have any previous admissions. As per the family the alarm went off at the patient's home and the patient is living alone the [facility] department call the patient's son to request to turn off the alarm which she did then he got a call again saying that his mom is unable to talk and she has a problem with ambulation they recommended to call the EMS EMS came and brought her to the emergency room for further evaluation. In the emergency room patient is unable to communicate but not in distress. Work-up shows no stroke in the CT head CT of the neck was negative for any stenosis. At the time of my examination patient is unable to talk at all and she has difficulty in following the commands. Also noticed to have weakness on the right upper arm. Decided to put her in IMCU for further management. Stroke parameters is going to be implemented. 09/06/2018-no acute events in the last 24 hours. Afebrile. Patient is going to rehab facility today. Hospital Course Hospital Course: 82 year old female history of osteoarthritis, gastric further reflux disease, depression this information got after reviewing her medications and the family members unable to give her past medical history on the patient is unable to communicate. Patient does have any previous admissions. As per the family the alarm went off at the patient's home and the patient is living alone the [employer]'s department call the patient's son to request to turn off the alarm which she did then he got a call again saying that his mom is unable to talk and she has a problem with ambulation they recommended to call the EMS EMS came and brought her to the emergency room for further evaluation. In the emergency room patient is unable to communicate but not in distress. Work-up shows no stroke in the CT head CT of the neck was negative for any stenosis. At the time of my examination patient is unable to talk at all and she has difficulty in following the commands. Also noticed to have weakness on the right upper arm. Decided to put her in IMCU for further management. Stroke parameters is going to be implemented. Physical Exam Vital Signs: Temp Pulse Resp BP Pulse Ox 98.3 F 78 22 H 141/46 H 100 09/06/18 07:49 09/06/18 07:49 09/06/18 07:49 09/06/18 07:49 09/06/18 07:49 Intake & Output 09/05/18 09/06/18 09/07/18 06:59 06:59 06:59 Intake Total 1110 720 Output Total 400 850 Balance 710 -130 Weight 95.8 kg 96.5 kg General appearance: PRESENT: no acute distress, morbidly obese Head exam: PRESENT: atraumatic Eye exam: PRESENT: PERRLA Ear exam: PRESENT: normal external ear exam Mouth exam: PRESENT: dry mucosa Neck exam: ABSENT: carotid bruit, JVD, lymphadenopathy, thyromegaly Respiratory exam: PRESENT: decreased breath sounds Cardiovascular exam: PRESENT: RRR. ABSENT: diastolic murmur, rubs, systolic murmur GI/Abdominal exam: PRESENT: normal bowel sounds, soft. ABSENT: distended, guarding, mass, organolmegaly, rebound, tenderness Rectal exam: PRESENT: deferred Extremities exam: PRESENT: full ROM. ABSENT: calf tenderness, clubbing, pedal edema Neurological exam: PRESENT: alert, awake, other - Dysarthria and right hemiplegi a. Psychiatric exam: PRESENT: anxious Results Laboratory Results: 09/06/18 04:44 09/04/18 04:23 09/06/18 04:44 WBC 11.7 H RBC 3.75 Hgb 11.1 L Hct 33.9 L MCV 90 MCH 29.7 MCHC 32.9 RDW 12.5 Plt Count 300 08/29/18 08/29/18 08/29/18 14:17 14:17 19:10 Creatine Kinase 34 37 CK-MB (CK-2) 0.93 Troponin I < 0.012 08/29/18 08/30/18 08/30/18 19:10 01:14 01:14 Creatine Kinase 54 CK-MB (CK-2) Troponin I < 0.012 0.339 08/30/18 08/30/18 08/30/18 06:35 06:35 08:40 Creatine Kinase 91 117 CK-MB (CK-2) Troponin I 0.460 08/30/18 08/30/18 08/30/18 08:40 14:27 14:27 Creatine Kinase 160 H CK-MB (CK-2) 2.51 3.71 Troponin I 0.386 0.263 08/30/18 08/30/18 20:38 20:38 Creatine Kinase 205 H CK-MB (CK-2) 4.50 Troponin I 0.476 Impressions: Head MRI 08/29/18 00:00 IMPRESSION: Large area of acute infarction posterior left MCA territory. Chest X-Ray 08/29/18 14:00 IMPRESSION: Mild cardiomegaly. No acute findings in the chest. Head CT 08/29/18 14:00 IMPRESSION: Right maxillary sinus fluid suggests acute infection. EVIDENCE OF ACUTE STROKE: NO. Head CTA 08/29/18 14:14 IMPRESSION: 1. Normal CTA bilateral carotids. 2. Attenuated vessels throughout the left cerebral hemisphere, MCA distribution. This suggests significant proximal stenosis/occlusion. Neck CTA 08/29/18 14:14 IMPRESSION: 1. Normal CTA bilateral carotids. 2. Attenuated vessels throughout the left cerebral hemisphere, MCA distribution. This suggests significant proximal stenosis/occlusion. Qualifiers - * PATIENT BEING DISCHARGED WITH ANY OF THE FOLLOWING DIAGNOSIS: No VTE patient discharged on overlapping Therapy?: No Acute Heart Failure - Is this a Heart Failure Patient?: No
[2018-09-06] MEDS: LISINOPRIL 10 MG TABLET PO SCH (10:02)
[2018-09-06] MEDS: CLOPIDOGREL BISULFATE 75 MG TABLET PO SCH (10:02)
[2018-09-06] MEDS: ASPIRIN 325 MG TABLET PO SCH (10:02)
[2018-09-06] MEDS: FAMOTIDINE 20 MG TABLET PO SCH (10:03)
[2018-09-06] MEDS: ENOXAPARIN SODIUM INJ 100 MG/1 ML DISP.SYRIN SUBCUT SCH (10:03)
[2018-09-06] MEDS: METOPROLOL TARTRATE 50 MG TABLET PO SCH (10:03)
[2018-09-06 16:07] VITALS: BP 136/60
== END 2018-09-06 16:12 | DRG 65 ==
LOC: ER 13:55 → EH 18:06 → UNDOADMIN 18:06 → EH 18:15 → 3W 23:19
PROVIDERS: ADMIT Internal Medicine; ATTEND Internal Medicine
DX: I63.512 Cerebral infarction due to unspecified occlusion or stenosis of left middle cerebral artery (principal); G81.91 Hemiplegia, unspecified affecting right dominant side; I16.1 Hypertensive emergency; R47.1 Dysarthria and anarthria; J44.9 Chronic obstructive pulmonary disease, unspecified; M19.90 Unspecified osteoarthritis, unspecified site; I10 Essential (primary) hypertension; Z66 Do not resuscitate; E66.9 Obesity, unspecified; R79.89 Other specified abnormal findings of blood chemistry; K21.9 Gastro-esophageal reflux disease without esophagitis; F32.9 Major depressive disorder, single episode, unspecified; Z68.32 Body mass index [BMI] 32.0-32.9, adult; Z79.899 Other long term (current) drug therapy; Z75.1 Person awaiting admission to adequate facility elsewhere; Z90.49 Acquired absence of other specified parts of digestive tract; Z90.710 Acquired absence of both cervix and uterus; Z82.49 Family history of ischemic heart disease and other diseases of the circulatory system; Z88.2 Allergy status to sulfonamides
CPT/HCPCS: 36415; 70450; 70496; 70498; 70551; 71045; 80053; 80061; 81001; 82550; 82553; 82962; 83036; 83735; 84443; 84484; 85025; 85027; 85610; 85730; 93005; 93010; 93306; 96374; 99285; J0360; J1650; J3490; S0164